=== PATIENT | female | born 1995 | race African-American/Black ===

== ENCOUNTER 2019-08-21 13:19 | Emergency (ER) | payer OTHER, SELFPAY ==
--- NOTE | ~2019-08-21 | XR_ITS ---
EXAMINATION: XR chest 2V 08/21/2019 14:36 INDICATION: Cough, fever PROCEDURE: 2 view chest COMPARISON: No prior studies for comparison. FINDINGS: The lungs are clear. The cardiomediastinal silhouette is within normal limits. There are no pleural effusions. There is no pneumothorax suspected. IMPRESSION: 1: NO ACUTE CARDIOPULMONARY DISEASE. Reviewed, dictated and finalized at location A.
[2019-08-21 13:44] VITALS: BP 119/83; PULSE 84; RESP 20; TEMP 37.2; O2SAT 100
--- NOTE | 2019-08-21 14:35 | ED.URI ---
HPI - URI/Sore Throat General Chief Complaint: Upper Respiratory Infection Stated Complaint: cough/eye running/lung hurt Source: patient Mode of arrival: ambulatory Limitations: no limitations History of Present Illness HPI Narrative: Patient is a 23-year-old female who presents complaining of sore throat, cough, chills, body aches. Patient is reported signs and symptoms x1 week, reports fever of 101 yesterday. Reports taking roay-eim-ebwjffi medications with little limited relief. Patient reports signs and symptoms starting after her brother returned from [facility] and she visited with him. MD elicited complaint: fever, cough, sore throat and rhinorrhea Related Data Allergies Allergy/AdvReac Type Severity Reaction Status Date / Time No Known Allergies Allergy Verified 08/21/19 13:40 Review of Systems Review of Systems: Narrative: CONSTITUTIONAL: Denies fever, chills, or sweats. EYES: Denies visual changes, redness, or discharge. ENT: Reports rhinorrhea, congestion, sore throat. CARDIOVASCULAR: Denies chest pain, palpitations, or edema. RESPIRATORY: Reports cough and mild dyspnea. GASTROINTESTINAL: Denies abdominal pain, nausea, vomiting, or diarrhea. GENITOURINARY: Denies dysuria or hematuria. SKIN: Denies rash or itching. MUSCULOSKELETAL: Denies back pain, joint pain, or myalgia. NEUROLOGIC: Denies headache, numbness, dizziness, or weakness. PSYCHIATRIC: Denies anxiety or depression. [facility] [place] Family History Family History Other CAD (coronary artery disease) Social History Social History (Updated 08/21/19 @ 14:43 by KARRIE Christensen) Smoking status: Never smoker Alcohol intake: never Substance use: never Gender identity (if verbalized by the patient): Female Exam Narrative: Exam Narrative: GENERAL: Well-appearing, well-nourished, and in no acute distress. HEAD: Normocephalic, atraumatic. EYES: EOMI. No redness or drainage. Conjunctiva are normal. ENT: Mucous membranes pink and moist. Nares clear. No rhinorrhea. TMs normal bilaterally. Throat erythema and edema. Uvula midline. NECK: AROM. Supple. No lymphadenopathy. CHEST: No respiratory distress. Scattered wheezing. HEART: Regular rate and rhythm. No murmur appreciated. Normal peripheral pulses. GI: Soft, nontender without rebound, or guarding. No distention. Bowel sounds normal in all quadrants. MUSCULOSKELETAL: No bony tenderness. EXTREMITIES: Normal range of motion. No edema. SKIN: Warm, dry, no rash. NEURO: No focal deficits. Alert and oriented x3. Gait steady. PSYCH: Normal affect. No signs of depression or anxiety. Course Course Emergency Course: Discussed with [facility] who reports patient does not meet criteria for testing. Discussed plan of care with patient and cautioned patient to use care with exposures because of symptoms. Patient aware and agrees to follow up with pcp. Vital Signs Vital signs: Vital Signs Temperature 37.2 C 08/21/19 13:44 Pulse Rate 84 08/21/19 13:44 Respiratory Rate 20 08/21/19 13:44 Blood Pressure 119/83 08/21/19 13:44 Pulse Oximetry 100 08/21/19 13:44 Temperature 37.2 C 08/21/19 13:44 Pulse Rate 84 08/21/19 13:44 Respiratory Rate 20 08/21/19 13:44 Blood Pressure 119/83 08/21/19 13:44 Pulse Oximetry 100 08/21/19 13:44 MDM - URI/Sore Throat MDM Narrative Medical decision making narrative: Patient chest x-ray was negative, influenza negative. Discussed with patient most likely viral illness. Patient aware of and agrees with plan of care. Patient is stable for discharge home with outpatient follow-up as discussed. Differential Diagnosis Differential diagnosis: Likely upper respiratory infection, viral infection and pharyngitis Lab Data Labs: Influenza A Screen Negative Reference Range: Negative Influenza B Screen Negative Reference Range: Negativ
== END 2019-08-21 14:55 | disposition home or self-care (01) ==
PROVIDERS: Emergency Provider Nurse Practitioner
DX: J06.9 Acute upper respiratory infection, unspecified (principal)
CPT/HCPCS: 71046; 87804; 99213; G0463

== ENCOUNTER 2019-11-16 19:58 | Emergency (ER) | payer OTHER, SELFPAY ==
--- NOTE | ~2019-11-16 | US_ITS ---
EXAMINATION: US OB <= 14 weeks fetus DATE: 11/16/2019 22:06 INDICATION: Vaginal bleeding during first trimester TECHNIQUE: Real-time pelvic ultrasound utilizing both a transvaginal and transabdominal probe was pe rformed. The interpreting radiologist was not present for the study. COMPARISON: None. FINDINGS: The uterus measures 7.7 x 5.3 x 7.2 cm. There is an intrauterine gestational sac. A yolk sac and fet al pole are identified. The crown rump length measures 2 mm, which correlates with an estimated gesta tional age of 5 weeks and 5 days. heart motion is identified measuring 89 beats per minute (bpm ) by M-mode Doppler. Relatively large hypoechoic subchorionic hematoma measuring 4.6 x 1.7 x 3.6 cm o n the anterior margin of the gestational sac. Small amount of anechoic fluid along the right side of the gestational sac likely within the endometrial canal. The right ovary measures 3.0 x 2.2 x 1.4 cm. 13 x 7 x 8 mm anechoic cyst at the periphery of the righ t ovary. There is a centrally hypoechoic corpus luteum cyst with peripheral echogenic wall also in th e right ovary. The left ovary measures 2.9 x 1.8 x 2.0 cm. Vascular flow identified in both ovaries o n color Doppler. There is no free fluid in the pelvis. IMPRESSION: 1. Single living fetus with heart rate of 89 bpm. 2. Gestational age by ultrasound of 5 weeks 5 day(s) +/- 3 day(s) with ultrasound estimated date of delivery ([facility]OR[facility]INE) of 07/13/2020. 3. Large subchorionic hematoma. Reviewed, dictated and finalized at location A. IMPRESSION: 1. Single living fetus with heart rate of 89 bpm. 2. Gestational age by ultrasound of 5 weeks 5 day(s) +/- 3 day(s) with ultraso und estimated date of delivery ([facility]OR[facility]INE) of 07/13/2020. 3. Large subchorionic hematoma.
--- NOTE | ~2019-11-16 | US_ITS ---
EXAMINATION: US OB <= 14 weeks fetus DATE: 11/16/2019 21:22 INDICATION: Vaginal bleeding during third trimester twin . TECHNIQUE: Real-time ultrasound of the pelvis was performed. The interpreting radiologist was not pre sent for the study. COMPARISON: None. FINDINGS: There are two living fetuses within separate gestational sacs by a thick intervening membra ne consistent with dichorionic diamnionic . The amniotic fluid volume is subjectively normal . Normal cervical length of 4.2 cm. Fetus A: Presentation is vertex. Placenta is anterior. cardiac activity and movement are noted. Fe brad heart rate is 127 beats per minute (bpm). Biophysical profile performed by the technologist: breathing (30 sec sustained breathing in 30 minutes): 2 out of 2 movement (3 gross body movements in 30 minutes): 2 out of 2 tone (one episode of xxsndzv-yofvuhtim-cvkvnce limb movement): 2 out of 2 Amniotic fluid pocket (2 cm): 2 out of 2 Total score: 8 out of 8 Fetus B: Presentation is breech. Placenta is posterior. cardiac activity and movement are noted. F etal heart rate is 131 bpm. Biophysical profile performed by the technologist: breathing (30 sec sustained breathing in 30 minutes): 2 out of 2 movement (3 gross body movements in 30 minutes): 2 out of 2 tone (one episode of ercrkzz-qldbxncfg-xmveztj limb movement): 2 out of 2 Amniotic fluid pocket (2 cm): 2 out of 2 Total score: 8 out of 8 IMPRESSION: 1. Dichorionic diamniotic with living twin fetuses. 2. Biophysical profile 8 out of 8 for fetus A and 8 out of 8 for fetus B Reviewed, dictated and finalized at location A.
[2019-11-16 20:00] VITALS: BP 133/88; PULSE 98; RESP 16; TEMP 35.9; O2SAT 100
--- NOTE | 2019-11-16 20:23 | ED.GENADULT ---
HPI - General Adult General Chief complaint: Vaginal Bleeding Stated complaint: vaginal bleeding, 6 weeks Time Seen by Provider: 11/16/19 20:08 Source: RN notes reviewed History of Present Illness HPI narrative: Patient presents emergency department from home for vaginal bleeding. Patient states that she had a home test approximately 2 weeks ago. Last menstrual cycle was 10/09/2019. Patient is states she is followed by Dr. Medrano. Patient states she began to have some vaginal bleeding approximately 1 hour ago denies any fevers or chills abdominal pain nausea vomiting or any other symptoms Related Data Home Medications Medication Instructions Recorded Confirmed PNV cmb#95-ferrous fumarate-FA 1 tablet PO DAILY 11/16/19 11/16/19 [] Allergies Allergy/AdvReac Type Severity Reaction Status Date / Time artichoke Allergy Severe Anaphylaxis Verified 11/16/19 20:57 Review of Systems Review of Systems: Narrative: Gen.: Denies fevers or chills ENT: Denies congestion Respiratory: Denies shortness of breath or cough CV: Denies chest pain or palpitations GI: Denies abdominal pain nausea, emesis or diarrhea HPI Musculoskeletal: Denies back pain or muscle pain Neuro: Denies numbness, tingling, weakness or focal weakness Skin: Denies rash Except as documented, all other systems reviewed and negative PMFSH Past Medical History Medical History (Updated 11/16/19 @ 22:53 by Nimesh Hardin DO) Patient denies significant medical history Social History Social History Smoking status: Never smoker Alcohol intake: never Substance use: never Gender identity (if verbalized by the patient): Female Exam Narrative: Exam Narrative: APPEARANCE: No acute distress, nontoxic, resting in bed EYES: EOMI HEENT: Normocephalic, atraumatic, OMM RESPIRATORY: No respiratory distress Clear to auscultation bilaterally with no rhonchi wheezing or rales. CARDIOVASCULAR: Regular rate and rhythm without murmurs rubs or gallops. ABDOMINAL: Soft, nontender, nondistended, no rebound or guarding : Normal external exam, small amount of dark maroon blood in vaginal canal cervix is closed MUSCULOSKELETAl: Moves all extremities. No clubbing, cyanosis or edema. NEURO: Awake and alert. Following commands, speech normal, no focal deficits SKIN:: Warm, dry. No rashes lesions or abrasions PSYCHIATRIC: Normal affect/mood, Course Course Emergency Course: Reviewed old records patient with B+ blood type. Patient also with history of chronic anemia Discussed with Dr. gallardo presentation work-up. Agrees with plan for discharge follow-up as an outpatient Discussed with patient results of workup and diagnosis. Discussed need for follow-up with primary care, proper use of medication, and reasons to return to the emergency department. Patient understands and agrees to current treatment plan Vital Signs Vital signs: Vital Signs Temperature 96.7 F L 11/16/19 20:00 Pulse Rate 98 11/16/19 20:00 Respiratory Rate 16 11/16/19 20:00 Blood Pressure 133/88 11/16/19 20:00 Pulse Oximetry 100 11/16/19 20:00 Temperature 96.7 F L 11/16/19 20:00 Pulse Rate 98 11/16/19 20:00 Respiratory Rate 16 11/16/19 20:00 Blood Pressure 133/88 11/16/19 20:00 Pulse Oximetry 100 11/16/19 20:00 Medical Decision Making Vital Signs Vital Signs: Vital Signs Temperature 96.7 F L 11/16/19 20:00 Pulse Rate 98 11/16/19 20:00 Respiratory Rate 16 11/16/19 20:00 Blood Pressure 133/88 11/16/19 20:00 Pulse Oximetry 100 11/16/19 20:00 Temperature 96.7 F L 11/16/19 20:00 Pulse Rate 98 11/16/19 20:00 Respiratory Rate 16 11/16/19 20:00 Blood Pressure 133/88 11/16/19 20:00 Pulse Oximetry 100 11/16/19 20:00 Lab Data Result diagrams: 11/16/19 20:38 11/16/19 20:39 Labs: Lab Results 11/16/19 11/16/19
[2019-11-16 20:56] LABS: Alanine Aminotransferase 13 U/L (4-35); Albumin Level 4.6 g/dL (3.5-5.1); Alkaline Phosphatase 79 U/L (38-126); Aspartate Amino Transferase 25 U/L (14-36); Bilirubin,Total 0.4 mg/dL (0.2-1.3); Blood Urea Nitrogen 8 mg/dL (7-17); Calcium 9.2 mg/dL (8.4-10.2); Carbon Dioxide 22 mmol/L (22-30); Chloride 104 mmol/L (98-107); Estimated Glomerular Filt Rate > 60; Glucose 91 mg/dL (65-105); Potassium 3.8 mmol/L (3.4-5.0); Sodium 135 mmol/L (137-145)
[2019-11-16 21:17] LABS: Basophils Absolute Auto 0.1 K/mm3 (0.0-0.1); Basophils Percent Auto 0.9 % (0.2-1.2); Eosinophils Absolute Auto 0.1 K/mm3 (0-0.3); Eosinophils Percent Auto 1.6 % (0-4.4); Hematocrit 30.1 % (37.0-47.0); Hemoglobin 8.7 g/dL (12.0-15.0); Immature Granulocyte Absolute 0.02 K/mm3 (0.00-0.031); Immature Granulocyte Percent A 0.3 % (0-0.5); Lymphocytes Absolute Auto 1.56 K/mm3 (0.9-3.2); Lymphocytes Percent Auto 20.7 % (18.3-44.2); Mean Corpuscular HGB Conc 28.9 g/dl (32-36); Mean Corpuscular Volume 72.5 fl (80-100); Mean Platelet Volume 11.1 fl (7.4-10.4); Monocytes Absolute Auto 0.6 K/mm3 (0.1-0.6); Monocytes Percent Auto 8.3 % (2.6-8.5); Neutrophils Absolute Auto 5.2 K/mm3 (1.3-6.7); Neutrophils Percent Auto 68.2 % (45.5-73.1); Platelet Count Result 281 k/mm3 (150-375); Red Blood Count 4.15 M/mm3 (4.2-5.4); Red Cell Distribution Width 18.8 % (11.5-14.5); White Blood Count 7.6 K/mm3 (4.5-10.0)
[2019-11-16 21:27] LABS: Hypochromasia 1+ (NORMAL); Ovalocytes 1+ (NORMAL); Platelet Estimate Adequate (Adequate)
[2019-11-16 23:00] VITALS: BP 129/87; PULSE 86; RESP 18; O2SAT 100
== END 2019-11-16 23:00 | disposition home or self-care (01) ==
PROVIDERS: Emergency Provider Emergency Medicine
DX: O20.0 Threatened abortion (principal); O30.001 Twin pregnancy, unspecified number of placenta and unspecified number of amniotic sacs, first trimester; Z3A.01 Less than 8 weeks gestation of pregnancy
CPT/HCPCS: 36415; 76801; 80053; 81025; 84702; 85025; 99284

== ENCOUNTER 2019-12-18 16:26 | Emergency (ER) | payer OTHER, SELFPAY ==
--- NOTE | 2019-12-18 16:49 | OBADM ---
This patient, Suni Mcdaniel, was taken by WC to the OB room 113. Pt was in tears stating she was miscarrying her 10wk . BP taken, bleeding assessed as half dollar size on her pad. Dr. Marshall called at 1615 and ordered the patient to be transferred to the ED. RN transported patient to the ED via WC
[2019-12-18 16:53] VITALS: RESP 20
[2019-12-18 17:18] VITALS: BP 130/98; PULSE 109; RESP 16; TEMP 36.8; O2SAT 100
[2019-12-18 17:33] LABS: Basophils Percent Auto 0.3 % (0.2-1.2); Eosinophils Absolute Auto 0.1 K/mm3 (0-0.3); Eosinophils Percent Auto 0.9 % (0-4.4); Hematocrit 31.2 % (37.0-47.0); Hemoglobin 9.4 g/dL (12.0-15.0); Immature Granulocyte Absolute 0.05 K/mm3 (0.00-0.031); Immature Granulocyte Percent A 0.5 % (0-0.5); Lymphocytes Absolute Auto 1.26 K/mm3 (0.9-3.2); Lymphocytes Percent Auto 12.3 % (18.3-44.2); Mean Corpuscular HGB Conc 30.1 g/dl (32-36); Mean Corpuscular Volume 73.1 fl (80-100); Mean Platelet Volume 11.1 fl (7.4-10.4); Monocytes Absolute Auto 0.7 K/mm3 (0.1-0.6); Monocytes Percent Auto 6.6 % (2.6-8.5); Neutrophils Absolute Auto 8.1 K/mm3 (1.3-6.7); Neutrophils Percent Auto 79.4 % (45.5-73.1); Platelet Count Result 284 k/mm3 (150-375); Red Blood Count 4.27 M/mm3 (4.2-5.4); Red Cell Distribution Width 18.9 % (11.5-14.5); White Blood Count 10.2 K/mm3 (4.5-10.0)
--- NOTE | 2019-12-18 18:49 | ED.PREGNANCY ---
HPI - General Chief complaint: Vaginal Bleeding Stated complaint: vag bleed/ 10 weeks preg Time Seen by Provider: 12/18/19 18:32 History of Present Illness HPI Narrative: Patient presents with her from the OBs office for vaginal bleeding. She is 10 weeks . She has had vaginal bleeding for 2 days. She has low back pain from 5 out of 10. She had an ultrasound in the OBs office that showed a subchorionic hemorrhage. Her lab work is back and her H&H is fine. I will do her female exam and call the OB to confirm the results of the ultrasound. She had some vomiting yesterday but not today. She is G3, P2 Ab1 Complaint: abdominal pain and vaginal bleeding Onset (ago): day(s) Pain Consistency: constant Location: pelvis Severity: moderate Related Data Home Medications Medication Instructions Recorded Confirmed PNV cmb#95-ferrous fumarate-FA 1 tablet PO DAILY 11/16/19 11/16/19 [] Allergies Allergy/AdvReac Type Severity Reaction Status Date / Time artichoke Allergy Severe Anaphylaxis Verified 11/16/19 20:57 Review of Systems Review of Systems: Narrative: CONSTITUTIONAL: Denies fever, chills, or sweats. EYES: Denies visual changes, redness, or discharge. ENT: Denies rhinorrhea, congestion, sore throat, or otalgia. CARDIOVASCULAR: Denies chest pain, palpitations, or edema. RESPIRATORY: Denies cough or dyspnea. GASTROINTESTINAL: Denies abdominal pain, nausea, vomiting, or diarrhea. GENITOURINARY: Denies dysuria or hematuria. SKIN: Denies rash or itching. MUSCULOSKELETAL: She has back pain, but not joint pain, or myalgia. NEUROLOGIC: Denies headache, numbness, or weakness. PSYCHIATRIC: Denies anxiety or depression. [facility] Past Medical History Medical History (Updated 12/18/19 @ 18:53 by Aury Aguillon MD) Miscarriage Twin Vaginal bleeding during Social History Social History Smoking status: Never smoker Alcohol intake: never Substance use: never Gender identity (if verbalized by the patient): Female Exam Narrative: Exam Narrative: GENERAL: Very thin girl very upset . hEAD: Normocephalic, atraumatic. EYES: PERRLA and EOMI. ENT: Nares clear, no rhinorrhea or epistaxis. Mucous membranes moist. NECK: Supple. CHEST: Clear to auscultation. No respiratory distress. HEART: Regular rate and rhythm. No murmur heard. Normal peripheral pulses. ABDOMEN: Soft, nontender, nondistended, normal active bowel sounds. EXTREMITIES: Normal range of motion. No edema. SKIN: Warm, dry, no rash. NEURO: No focal deficits. Alert and oriented x3. PSYCH: Sad and worried. : No external vaginal bleeding, vaginal vault full of blood, no active bleeding after vault is empty, office is closed, no tenderness. Course Consultations Consultation #1: Called [facility] and spoke with Dr. Marshall. He confirms that the ultrasound was done this morning and does not need to be repeated. He does not think is necessary to have a 48-hour hCG. He said that we can follow clinically. Date: 12/18/19 Time: 18:55 Vital Signs Vital signs: Vital Signs Respiratory Rate 20 12/18/19 16:53 Temperature 98.3 F 12/18/19 17:18 Pulse Rate 109 H 12/18/19 17:18 Respiratory Rate 16 12/18/19 17:18 Blood Pressure 130/98 H 12/18/19 17:18 Pulse Oximetry 100 12/18/19 17:18 MDM - OB/Uterine Contractions Medical Records Attestation: I reviewed the patient's medical records. Lab Data Attestation: I reviewed the patient's lab results. Result diagrams: 12/18/19 17:24 Labs: Lab Results 12/18/19 12/18/19 12/18/19 Range/Units 17:24 17:24 17:24 WBC 10.2 H (4.5-10.0) K/mm3 RBC 4.27 (4.2-5.4) M/mm3 Hgb 9.4 L (12.0-15.0) g/dL Hct 31.2 L (37.0-47.0) % MCV 73.1 L (80-100) fl MCH 22.0 L (26-34) pg MCHC 30.1 L (32-36) g/dl RDW 18.9 H (11.5-14.5) % Plt Count 284 (150-375) k/mm3
== END 2019-12-18 18:52 | disposition home or self-care (01) ==
PROVIDERS: Emergency Provider Emergency Medicine
DX: O46.91 Antepartum hemorrhage, unspecified, first trimester (principal); Z3A.10 10 weeks gestation of pregnancy
CPT/HCPCS: 36415; 84702; 85025; 85461; 99284

== ENCOUNTER 2020-01-07 13:01 | Emergency (ER) | payer OTHER, SELFPAY ==
--- NOTE | ~2020-01-07 | XR_ITS ---
XR chest 1V portable DATE: 01/07/2020 14:11 INDICATION: Vomiting. 13 week gravid patient. TECHNIQUE: Upright portable AP chest COMPARISON: 08/21/2019 2 view chest FINDINGS: Bilateral hyperinflation. No pulmonary infiltrate or consolidation, pleural effusion or pul monary vascular congestion or pneumothorax. Normal heart size. No hilar or mediastinal enlargement. IMPRESSION: Bilateral hyperinflation; otherwise no active cardiopulmonary disease Reviewed, dictated and finalized at location A. IMPRESSION: Bilateral hyperinflation; otherwise no active cardiopulmonary disea se
[2020-01-07 13:03] VITALS: BP 123/94; PULSE 120; RESP 18; TEMP 36.4; O2SAT 100
--- NOTE | 2020-01-07 13:54 | ECG_ITS ---
Measurements Intervals [place] Rate: 102 P: 59 LA: 179 QRS: 58 QRSD: 78 T: -34 QT: 322 QTc: 421 Interpretive Statements SINUS TACHYCARDIA T WAVE ABNORMALITY IN INFERIOR LEADS- CONSIDER ISCHEMIA ABNORMAL ECG Electronically Signed On 01-07-2020 14:52:27 CDT by Chester Sanabria D.O.
[2020-01-07 14:14] LABS: Basophils Percent Auto 0.1 % (0.2-1.2); Hematocrit 31.8 % (37.0-47.0); Hemoglobin 9.8 g/dL (12.0-15.0); Immature Granulocyte Absolute 0.07 K/mm3 (0.00-0.031); Immature Granulocyte Percent A 0.5 % (0-0.5); Lymphocytes Absolute Auto 0.76 K/mm3 (0.9-3.2); Lymphocytes Percent Auto 5.3 % (18.3-44.2); Mean Corpuscular HGB Conc 30.8 g/dl (32-36); Mean Corpuscular Hemoglobin 22.4 pg (26-34); Mean Corpuscular Volume 72.6 fl (80-100); Mean Platelet Volume 11.1 fl (7.4-10.4); Monocytes Absolute Auto 0.3 K/mm3 (0.1-0.6); Monocytes Percent Auto 2.4 % (2.6-8.5); Neutrophils Percent Auto 91.7 % (45.5-73.1); Platelet Count Result 372 k/mm3 (150-375); Red Blood Count 4.38 M/mm3 (4.2-5.4); Red Cell Distribution Width 17.8 % (11.5-14.5); White Blood Count 14.2 K/mm3 (4.5-10.0)
[2020-01-07 14:27] LABS: Alanine Aminotransferase 14 U/L (4-35); Albumin Level 4.6 g/dL (3.5-5.1); Alkaline Phosphatase 62 U/L (38-126); Anion Gap 16.2 mmol/L (7-16); Aspartate Amino Transferase 28 U/L (14-36); Bilirubin,Total 1.2 mg/dL (0.2-1.3); Blood Urea Nitrogen 8 mg/dL (7-17); Calcium 9.7 mg/dL (8.4-10.2); Carbon Dioxide 19 mmol/L (22-30); Chloride 100 mmol/L (98-107); Estimated CRCL calculation 161 ml/min; Estimated Glomerular Filt Rate > 60; Glucose 125 mg/dL (65-105); Lipase 96 U/L (23-300); Potassium 3.2 mmol/L (3.4-5.0); Sodium 132 mmol/L (137-145)
[2020-01-07 15:03] LABS: Troponin I < 0.012 ng/mL (0.000-0.034)
[2020-01-07 15:05] VITALS: BP 136/90; PULSE 100; RESP 14; O2SAT 98
[2020-01-07] MEDS: METOCLOPRAMIDE HCL INJ 10 MG/2 ML VIAL IV PUSH (15:19)
[2020-01-07] MEDS: DEXTROSE 5%/LACTATED RINGERS 1,000 ML 1000 ML IV CONT (15:19)
--- NOTE | 2020-01-07 15:46 | ED.NAVMDI ---
HPI - Nausea/Vomiting/Diarrhea General Chief complaint: Nausea/Vomiting/Diarrhea Stated complaint: Vomiting, 13 Weeks Preg Time Seen by Provider: 01/07/20 13:13 Source: patient Mode of arrival: ambulatory Limitations: no limitations History of Present Illness HPI Narrative: This patient is a 24 year old female approximately 13 weeks GA who presents for evaluation of nausea and vomiting. She report has been having nausea, vomiting and diarrhea for 24 hours. She is unable to keep any fluids down. She reports lightheadedness and weakness due to dehydration. She is taking an antiemetic at home without relief. She is unable to state name of medication. She denies sick contacts. She denies fever, chills, cough or abdominal pain. She denies vaginal bleeding. Her OB is Dr. Medrano. Related Data Home Medications Medication Instructions Recorded Confirmed PNV cmb#95-ferrous fumarate-FA 1 tablet PO DAILY 11/16/19 11/16/19 [] Allergies Allergy/AdvReac Type Severity Reaction Status Date / Time artichoke Allergy Severe Anaphylaxis Verified 01/07/20 13:07 Review of Systems Review of Systems: All systems reviewed & are unremarkable except as noted in HPI and below Constitutional: Constitutional: Denies chills and Denies fever(s) Cardiovascular: Cardiovascular: Reports chest pain Respiratory: Respiratory: Denies cough, Denies dyspnea and Denies wheezing Gastrointestinal: Gastrointestinal: Denies abdominal pain, Reports diarrhea, Reports nausea and Reports vomiting Genitourinary: Genitourinary: Denies abnormal vaginal bleeding and Denies vaginal discharge Musculoskeletal: Musculoskeletal: Denies back pain PMFSH Past Medical History Medical History (Updated 01/07/20 @ 17:49 by Libra Marcus MD) Miscarriage Twin Vaginal bleeding during Social History Social History Smoking status: Never smoker Alcohol intake: never Substance use: never Gender identity (if verbalized by the patient): Female Exam Narrative: Exam Narrative: GENERAL: well-nourished, and in no acute distress. HEAD: Normocephalic, atraumatic EYES: PERRLA and EOMI, conjunctiva clear without discharge THROAT:Mucous membranes moist, Oropharynx normal without erythema, exudate, peritonsillar swelling or fluctuance NECK: Supple, without lymphadenopathy or mass RESPIRATORY: No respiratory distress, Airway patent, Respirations non-labored, Clear to auscultation without rales, rhonchi or wheeze HEART: Regular rate and rhythm. No murmur heard. Normal peripheral pulses. ABDOMEN: Soft, nontender, nondistended, normal active bowel sounds. No masses. No rebound or guarding, No organomegaly. EXTREMITIES: No edema, normal strength with full range of motion. SKIN: Warm, dry, normal color without rash NEURO: Alert and oriented x3. CN 2-12 grossly intact. No focal deficits. PSYCH: Normal mood and affect. Course Reevaluation(s) Reevaluation #1: Patient reports she is still nauseated. Date: 01/07/20 Time: 15:55 Reevaluation #2: Patient states she feels much better. She is able to tolerate PO now Date: 01/07/20 Time: 17:46 Consultations Consultation #1: I Discussed case with Dr. corrales. She recommends patient be given pepcid. Patient should also be taking B6 three times a day and unasym 1/2 tab at dinner. Date: 01/07/20 Time: 17:17 Vital Signs Vital signs: Vital Signs Temperature 97.5 F L 01/07/20 13:03 Pulse Rate 120 H 01/07/20 13:03 Respiratory Rate 18 01/07/20 13:03 Blood Pressure 123/94 H 01/07/20 13:03 Pulse Oximetry 100 01/07/20 13:03 Temperature 97.5 F L 01/07/20 13:03 Pulse Rate 80 01/07/20 18:18 Respiratory Rate 16 01/07/20 18:18 Blood Pressure 132/88 01/07/20 18:18 Pulse Oximetry 98 01/07/20 18:18 MDM - Nausea/Vomiting/Diarrhea Lab Data Attestation: I reviewed the patient's lab results. Result diagra
[2020-01-07] MEDS: ONDANSETRON INJ 4 MG/2 ML VIAL IV PUSH (16:35)
[2020-01-07] MEDS: SODIUM CHLORIDE 0.9% IV 1,000 ML 999 ML IV CONT (16:35)
[2020-01-07 17:00] LABS: Add Urine Microscopic? YES; Appearance Urine Clear (Clear); Bacteria Urine Trace /hpf; Bilirubin Urine Negative (Negative); Blood Urine Negative (Negative); Color Urine Yellow (Yellow); Glucose Urine UA 1+ mg/dL (Negative); Ketones Urine 2+ mg/dL (Negative); Leukocyte Esterase Ur Negative LEU/UL (Negative); Mucus Urine Few /lpf; Nitrate Urine Negative (Negative); Protein Urine 2+ mg/dL (Negative); Squamous Epithelial Cell Urine Moderate /hpf (Few); Urobilinogen Urine Negative mg/dL (<2.0); WBC Urine 0-3 /hpf
[2020-01-07 17:06] LABS: Specific Grav Ur 1.031 (1.001-1.035)
[2020-01-07] MEDS: FAMOTIDINE 20 MG/2 ML VIAL IV PUSH (18:06)
[2020-01-07 18:18] VITALS: BP 132/88; PULSE 80; RESP 16; O2SAT 98
== END 2020-01-07 18:18 | disposition home or self-care (01) ==
PROVIDERS: Emergency Provider General Practice
DX: O21.9 Vomiting of pregnancy, unspecified (principal); O99.281 Endocrine, nutritional and metabolic diseases complicating pregnancy, first trimester; E86.0 Dehydration; Z3A.13 13 weeks gestation of pregnancy; O99.89 Other specified diseases and conditions complicating pregnancy, childbirth and the puerperium; R00.0 Tachycardia, unspecified; R94.31 Abnormal electrocardiogram [ECG] [EKG]
CPT/HCPCS: 36415; 71045; 80053; 81001; 83690; 84484; 85025; 93005; 96361; 96374; 96375; 99284; J0131; J2405; J2765; J7030; J7121

== ENCOUNTER 2020-01-19 13:26 | Outpatient (RCR) | payer OTHER, SELFPAY ==
[2020-01-19 14:11] LABS: Hemoglobin 9.8 g/dL (12.0-15.0); Mean Corpuscular HGB Conc 30.6 g/dl (32-36); Mean Corpuscular Hemoglobin 22.7 pg (26-34); Mean Corpuscular Volume 74.1 fl (80-100); Mean Platelet Volume 10.4 fl (7.4-10.4); Platelet Count Result 400 k/mm3 (150-375); Red Blood Count 4.32 M/mm3 (4.2-5.4); Red Cell Distribution Width 17.9 % (11.5-14.5); White Blood Count 10.3 K/mm3 (4.5-10.0)
[2020-01-19 15:07] LABS: HIV 1/2 Ab P24 Ag Result Negative (Negative)
[2020-01-19 15:11] LABS: Hepatitis B Surface Antigen Negative (Negative); Rubella IgG Antibody 80.3 IU/ML
[2020-01-22 10:03] LABS: Rapid Plasma Reagin Non-Reactive (NonReactive)
[2020-01-26 13:38] LABS: CMV IgG Antibody <0.60 U/mL (<0.60)
== END 2020-04-18 23:59 | disposition home or self-care (01) ==
LOC: ANHLAB 13:26
PROVIDERS: Visit Provider Obstetrics & Gynecology
DX: Z11.4 Encounter for screening for human immunodeficiency virus [HIV] (principal)
CPT/HCPCS: 36415; 84702; 85027; 85461; 86592; 86644; 86703; 86747; 86762; 86787; 87086; 87088; 87340; G0432

== ENCOUNTER 2020-03-01 03:48 | Observation (INO) | payer OTHER, SELFPAY ==
[2020-03-01] VITALS (12 sets, daily range): BP systolic 116–124; BP diastolic 66–82; PULSE 99–116; O2SAT 100
--- NOTE | ~2020-03-01 | US_ITS ---
EXAMINATION: US OB limited EXAM DATE: 03/01/2020 07:41 INDICATION: Vaginal cramping, bleeding. . 2nd trimester. TECHNIQUE: Pelvic obstetrical transabdominal sonogram was performed by a technologist. There are mu ltiple grayscale and Doppler images available for interpretation. Comparison is made to prior examina tion from 11/16/2019. FINDINGS: There is a single fetus identified in breech presentation with a heart rate of 155 beats pe r minute. The placenta is located in the fundal position. There are 2 hypoechoic regions along the anterior and inferior margin of the placenta, one is slightl y more echogenic than the other. Region which is along the placental margin measures 4.5 x 1.8 x 5.6 cm. The other regions slightly more hyperechoic measuring 4.7 x 3.6 x 3.8 cm. These could be retrop lacental marginal hematomas. Please note that on prior study there was a subchorionic hematoma identi fied measuring 4.6 x 1.7 x 3.6 cm in same location. IMPRESSION: Live intrauterine gestation with 2 contiguous regions consistent with sizable retroplace ntal marginal hematomas, probably different ages given slightly different echogenicities and there wa s a similar sized subchorionic hematoma identified on an ultrasound in November in the same location. Reviewed, dictated and finalized at location A. IMPRESSION: Live intrauterine gestation with 2 contiguous regions consistent w ith sizable retroplacental marginal hematomas, probably different ages given sl ightly different echogenicities and there was a similar sized subchorionic juan luther identified on an ultrasound in November in the same location.
[2020-03-01] MEDS: DEXTROSE 5%/LACTATED RINGERS 1,000 ML 100 ML IV CONT (05:50)
[2020-03-01] MEDS: TERBUTALINE SULFATE 1 MG/ML VIAL 0.25 MG SUB-Q ×2 (05:54→09:03)
--- NOTE | 2020-03-01 11:41 | PC.NURSE ---
TOCO monitor show rare contraction since 0600 until discharge to home with irritability. Pt has been resting and sleeping on/off. When awake pt complains of cramping. No vaginal bleeding seen. 2nd dose of terbutaline 0.25 given SQ at 0903. Home to self care and follow up with TANIYA and Dr. Medrano's office at 1000.
--- NOTE | 2020-03-14 09:28 | PM.OBTRLD ---
OB - Triage/Final Diagnosis Visit Information Comments/Additional reasons for admission: vaginal bleeding
== END 2020-03-01 10:00 | disposition home or self-care (01) ==
PROVIDERS: Admitting Provider Obstetrics & Gynecology; Visit Provider Obstetrics & Gynecology
DX: O46.92 Antepartum hemorrhage, unspecified, second trimester (principal); Z3A.00 Weeks of gestation of pregnancy not specified
CPT/HCPCS: 76815; 96372; G0378; G0379; J3105; J7121

== ENCOUNTER 2020-03-07 15:13 | Observation (INO) | payer OTHER, SELFPAY ==
--- NOTE | ~2020-03-07 | US_ITS ---
EXAMINATION: US OB limited DATE: 03/07/2020 16:10 INDICATION: Vaginal bleeding during second trimester TECHNIQUE: Real-time ultrasound of the pelvis was performed. The interpreting radiologist was not pre sent for the study. COMPARISON: 03/01/2020 FINDINGS: There is a single living fetus in breech presentation. The placenta is fundal. There is an evolving hypoechoic area along the margin of the placenta which measures up to 6.7 cm, previously 5.8 cm. cardiac activity and movement are noted. heart rate is 135 beats per minute (b pm). The amniotic fluid index is 12.0 cm which is normal. IMPRESSION: 1. Single living fetus in breech presentation. 2. Apparent evolving marginal placental hematoma with slight increase in size. Reviewed, dictated and finalized at location A.
[2020-03-07 15:25] VITALS: BP 108/74; PULSE 96
[2020-03-07 15:30] VITALS: BP 107/80; PULSE 101
[2020-03-07 15:45] VITALS: BP 110/82; PULSE 98
[2020-03-07] MEDS: TERBUTALINE SULFATE 1 MG/ML VIAL (16:51)
[2020-03-07] MEDS: TERBUTALINE SULFATE 1 MG/ML VIAL 0.25 MG SUB-Q (17:23)
[2020-03-07 17:58] VITALS: BMI 58.1
--- NOTE | 2020-03-13 07:26 | PM.OBTRLD ---
OB - Triage/Final Diagnosis Visit Information Comments/Additional reasons for admission: vaginal bleeding
--- NOTE | 2020-03-13 07:28 | PM.OBTRLD ---
OB - Triage/Final Diagnosis Visit Information Comments/Additional reasons for admission: vaginal bleeding
== END 2020-03-07 18:03 | disposition home or self-care (01) ==
PROVIDERS: Admitting Provider Obstetrics & Gynecology; Visit Provider Obstetrics & Gynecology
DX: O46.90 Antepartum hemorrhage, unspecified, unspecified trimester (principal); Z3A.00 Weeks of gestation of pregnancy not specified
CPT/HCPCS: 76815; 96372; G0378; G0379; J3105

== ENCOUNTER 2020-08-09 23:38 | Observation (INO) | payer OTHER, SELFPAY ==
[2020-08-09 23:39] VITALS: BP 131/94; PULSE 108; RESP 21; TEMP 36.6; O2SAT 99
--- NOTE | 2020-08-09 23:47 | ECG_ITS ---
Measurements Intervals [place] Rate: 99 P: 45 DC: 191 QRS: 48 QRSD: 77 T: -24 QT: 345 QTc: 443 Interpretive Statements SINUS RHYTHM NONSPECIFIC T-WAVE ABNORMALITY- INFERIOR LEADS BORDERLINE ECG Electronically Signed On 08-10-2020 11:38:56 [facility] by Chester Sanabria D.O.
--- NOTE | 2020-08-09 23:55 | ED.OVERDOSE ---
HPI - Overdose General Chief Complaint: Overdose Stated Complaint: od Time Seen by Provider: 08/09/20 23:46 Source: RN notes reviewed History of Present Illness HPI Narrative: Patient presents to emergency department from home via EMS for intentional overdose. Patient states she has been dealing with increased depression she had a child approximately 4 months ago that spent 100 days in the NICU and just returned home approximately 3 weeks ago she states she has been struggling with depression throughout her recovery patient states that last night she attempted to harm herself by taking an unknown amount of pain medication but then threw them up shortly after this evening the patient took an unknown amount of sertraline states she vomited shortly after that as well and the called EMS patient does report suicidal ideation but denies any homicidal ideation she denies any recent illness denies any fevers or chills chest pain shortness of breath or any other symptoms. When asked what pain medication she took last night the patient states the bottle only said pain pills Related Data Home Medications Medication Instructions Recorded Confirmed PNV cmb#95-ferrous fumarate-FA 1 tablet PO DAILY 11/16/19 11/16/19 [] Allergies Allergy/AdvReac Type Severity Reaction Status Date / Time artichoke Allergy Severe Anaphylaxis Verified 01/07/20 13:07 Review of Systems Review of Systems: Narrative: Gen.: Denies fevers or chills ENT: Denies congestion Respiratory: Denies shortness of breath or cough CV: Denies chest pain or palpitations GI: Denies abdominal pain nausea, emesis or diarrhea Musculoskeletal: Denies back pain or muscle pain Neuro: Denies numbness, tingling, weakness or focal weakness Skin: Denies rash Psych: See HPI Except as documented, all other systems reviewed and negative [facility] Past Medical History Medical History Miscarriage Twin Vaginal bleeding during Family History Family History Other CAD (coronary artery disease) Social History Social History Smoking status: Never smoker Alcohol intake: never Substance use: never Gender identity (if verbalized by the patient): Female Exam Narrative: Exam Narrative: APPEARANCE: No acute distress, nontoxic, resting in bed EYES: PERRL HEENT: Normocephalic, atraumatic, OMM RESPIRATORY: No respiratory distress Clear to auscultation bilaterally with no rhonchi wheezing or rales. CARDIOVASCULAR: Regular rate and rhythm without murmurs rubs or gallops. ABDOMINAL: Soft, nontender, nondistended, no rebound or guarding MUSCULOSKELETAl: Moves all extremities. No clubbing, cyanosis or edema. NEURO: Awake and alert. Following commands, speech normal, no focal deficits SKIN:: Warm, dry. No rashes lesions or abrasions PSYCHIATRIC: Positive suicidal ideation, denies homicidal ideation Course Course Emergency Course: Patient control notified by nursing staff Discussed with Dr. Sommers presentation and work-up agrees with admission in the ICU Discussed with Dr. Acosta presentation work-up agrees with admission at this time Discussed with patient and family results of workup and diagnosis. Discussed need for admission. Patient and family understand and agree to current treatment plan Vital Signs Vital signs: Vital Signs Temperature 98 F 08/09/20 23:39 Pulse Rate 108 H 08/09/20 23:39 Respiratory Rate 21 H 08/09/20 23:39 Blood Pressure 131/94 H 08/09/20 23:39 Pulse Oximetry 99 08/09/20 23:39 Temperature 98 F 08/09/20 23:39 Pulse Rate 100 08/10/20 02:06 Respiratory Rate 12 08/10/20 02:06 Blood Pressure 122/92 H 08/10/20 02:06 Pulse Oximetry 99 08/10/20 02:06 MDM - Overdose Lab Data Result diagrams: 08/10/20 00:42
[2020-08-10] VITALS (10 sets, daily range): BP systolic 107–149; BP diastolic 68–92; PULSE 86–123; RESP 12–20; TEMP 36.8–37.2; O2SAT 98–100; BMI 20.9
--- NOTE | 2020-08-10 | PC.NURSE ---
spoke with amber car from [place] poison control. watch for sinus tach, prolong qt, wide qrs, coma.
[2020-08-10 00:50] LABS: Basophils Percent Auto 0.3 % (0.2-1.2); Hematocrit 47.7 % (37.0-47.0); Hemoglobin 15.5 g/dL (12.0-15.0); Immature Granulocyte Absolute 0.09 K/mm3 (0.00-0.031); Immature Granulocyte Percent A 0.6 % (0-0.5); Lymphocytes Percent Auto 3.8 % (18.3-44.2); Mean Corpuscular HGB Conc 32.5 g/dl (32-36); Mean Corpuscular Hemoglobin 30.3 pg (26-34); Mean Corpuscular Volume 93.3 fl (80-100); Monocytes Absolute Auto 0.3 K/mm3 (0.1-0.6); Monocytes Percent Auto 1.9 % (2.6-8.5); Neutrophils Absolute Auto 14.6 K/mm3 (1.3-6.7); Neutrophils Percent Auto 93.4 % (45.5-73.1); Platelet Count Result 262 k/mm3 (150-375); Red Blood Count 5.11 M/mm3 (4.2-5.4); Red Cell Distribution Width 12.9 % (11.5-14.5); White Blood Count 15.6 K/mm3 (4.5-10.0)
[2020-08-10 01:00] LABS: Acetaminophen < 10 ug/mL (10-30); Ethanol < 10 mg/dL (<10); Salicylate < 1.0 mg/dL (2-20)
[2020-08-10 01:17] LABS: Alanine Aminotransferase 17 U/L (4-35); Albumin Level 5.1 g/dL (3.5-5.1); Alkaline Phosphatase 105 U/L (38-126); Anion Gap 12 mmol/L (8-16); Aspartate Amino Transferase 37 U/L (14-36); Bilirubin,Total 1.2 mg/dL (0.2-1.3); Blood Urea Nitrogen 12 mg/dL (7-17); Calcium 9.7 mg/dL (8.4-10.2); Carbon Dioxide 24 mmol/L (22-30); Chloride 108 mmol/L (98-107); Estimated CRCL calculation 120 ml/min; Estimated Glomerular Filt Rate > 60; Glucose 120 mg/dL (65-105); Sodium 144 mmol/L (137-145)
[2020-08-10 01:26] LABS: Add Urine Microscopic? YES; Appearance Urine Clear (Clear); Bacteria Urine Trace /hpf; Bilirubin Urine Negative (Negative); Blood Urine Negative (Negative); Color Urine Yellow (Yellow); Glucose Urine UA Negative (Negative); Ketones Urine Trace mg/dL (Negative); Leukocyte Esterase Ur Negative LEU/UL (Negative); Mucus Urine Few /lpf; Nitrate Urine Negative (Negative); Protein Urine 2+ mg/dL (Negative); RBC Urine 0-2 /hpf (0-2); Specific Grav Ur 1.027 (1.001-1.035); Squamous Epithelial Cell Urine Moderate /hpf (Few); Urobilinogen Urine Negative mg/dL (<2.0)
[2020-08-10 01:45] LABS: Amphetamine Screen Urine Negative (Negative); Barbiturate Screen Urine Negative (Negative); Benzodiazepines Screen Urine Positive (Negative); Cannabinoid Screen Urine Negative (Negative); Cocaine Screen Urine Negative (Negative); Methadone Screen Urine Negative (Negative); Opiate Screen Urine Negative (Negative); Phencyclidine Screen Urine Negative (Negative)
[2020-08-10] MEDS: SODIUM CHLORIDE 0.9% IV 1,000 ML 999 ML IV CONT ×2 (02:02→08:47)
[2020-08-10 02:03] LABS: Thyroid Stimulating Hormone 0.312 uIU/mL (0.465-4.680)
--- NOTE | 2020-08-10 02:09 | PM.IMHP ---
H&P: HPI History of Present Illness Date/Time: 08/10/20 02:09 Chief Complaint: Intentional overdose Narrative: This is a 24 year old female who [facility] to [facility] overdose. The patient has been depressed lately secondary to depression and having her child in the NICU for 100 days. Apparently she took an unknown amount of pain medication yesterday and vomited up those pills afterwards. Tonight she intentionally overdosed on a full bottle of Sertraline. She vomited well over an hour later when she attempted to eat some food. Since then she has been very nauseated and has had diffuse abdominal discomfort. She denies any other symptoms. She denies any previous suicidal attempts. She also denies any homocidal ideation. Operational Communication Chief, Dr. Sommers has been consulted by ER provider. No other complaints. Review of Systems Review of Systems: All systems reviewed & are unremarkable except as noted in HPI and below PMFSH Past Medical History Medical History Miscarriage Twin Vaginal bleeding during Surgical History Surgical History Previous section Family History Family History Father Myocardial infarct Other CAD (coronary artery disease) Social History Social History Smoking status: Never smoker Alcohol intake: never Substance use: never Gender identity (if verbalized by the patient): Female Spiritual care concerns: No Meds Home Medications and Allergies Allergies Allergy/AdvReac Type Severity Reaction Status Date / Time artichoke Allergy Severe Anaphylaxis Verified 01/07/20 13:07 Vital Signs Vital Signs - 24 hr 08/09/20 23:39 08/10/20 01:56 08/10/20 02:06 Temperature 36.6 C Pulse Rate 108 H 95 100 Respiratory Rate 21 H 18 12 Blood Pressure 131/94 H 149/92 H 122/92 H Pulse Oximetry 99 98 99 Exam Const: General: cooperative, alert and awake Nutritional Appearance: well nourished Orientation/consciousness: patient oriented x3 HENMT: Head: normal to inspection General nose exam: Normal external nose present Face and sinus: normal facial exam Mouth: Yes Normal oral and palatal mucosa present and Yes oropharynx normal Eyes: Pupils: Equal, round and reactive pupils present EOM: EOMs intact bilaterally Neck: Neck: supple and no JVD Thyroid: thyroid normal Lymphatic: lymphadenopathy not noted Resp: Effort & Inspection: normal respiratory effort Auscultation: clear to auscultation bilaterally Cardio: Rate: regular rate Rhythm: regular rhythm Heart sounds: no murmurs GI: Inspection: normal to inspection Auscultation: normal bowel sounds Skin: General skin exam: normal color and no rashes or lesions noted Neuro: General: patient oriented x3 Cranial nerves: Yes CN's II-XII intact bilaterally and Yes Equal, round and reactive pupils present Speech: normal speech Motor exam (neuro): 5/5 motor strength present throughout Sensory Exam: normal sensation Extrem: General: normal to inspection and no edema Psych: Mental Status: mental status grossly normal Affect: Sad affect present H&P: Results Labs Labs: Short CBC 08/10/20 Range/Units 00:42 WBC 15.6 H (4.5-10.0) K/mm3 Hgb 15.5 H D (12.0-15.0) g/dL Hct 47.7 H (37.0-47.0) % Plt Count 262 (150-375) k/mm3 BMP 08/10/20 00:42 Sodium 144 Potassium 4.0 Chloride 108 H Carbon Dioxide 24 BUN 12 Creatinine 0.70 Glucose 120 H Calcium 9.7 Liver Function 08/10/20 Range/Units 00:42 Total Bilirubin 1.2 (0.2-1.3) mg/dL AST 37 H (14-36) U/L ALT 17 (4-35) U/L Alkaline Phosphatase 105 (38-126) U/L Albumin 5.1 (3.5-5.1) g/dL Urine 08/10/20 Range/Units 01:10 Urine Color Y
--- NOTE | 2020-08-10 02:33 | PC.NURSE ---
converse with poison control gave a up date
--- NOTE | 2020-08-10 03:05 | ADMGEN ---
This patient, Suni Mcdaniel, was admitted to Intensive Care Unit-7. Patient/family oriented to hospital policies and general routines including ID bracelet, bed and alarms, visiting hours, pain management, procedures, bathroom and other care routines, personal items, smoking policy, room service/diet, and visiting hours. Information on how to activate the Rapid Response Team has been discussed. Patient/Family are encouraged to report perceived risks to care and to ask questions if they do not understand what they are told or what they should do.
--- NOTE | 2020-08-10 03:13 | ECG_ITS ---
Measurements Intervals [place] Rate: 94 P: 46 ND: 169 QRS: 48 QRSD: 76 T: -14 QT: 344 QTc: 430 Interpretive Statements SINUS RHYTHM NONSPECIFIC T-WAVE ABNORMALITY- INFERIOR LEADS BORDERLINE ECG Electronically Signed On 08-10-2020 11:38:13 CHEESE SPECIALIST by Chetser Sanabria D.O.
[2020-08-10] MEDS: SODIUM CHLORIDE 0.9% IV 1,000 ML 125 ML IV CONT (03:36)
[2020-08-10 04:13] LABS: Acetaminophen < 10 ug/mL (10-30); Salicylate < 1.0 mg/dL (2-20)
--- NOTE | 2020-08-10 06:18 | ECG_ITS ---
Measurements Intervals [place] Rate: 92 P: 28 MT: 185 QRS: 47 QRSD: 74 T: -9 QT: 350 QTc: 433 Interpretive Statements SINUS RHYTHM NONSPECIFIC T-WAVE ABNORMALITY- INFERIOR LEADS BORDERLINE ECG Electronically Signed On 08-10-2020 11:38:35 COTTAGE ATTENDANT by Chester Sanabria D.O.
--- NOTE | 2020-08-10 08:46 | WPDCNINT ---
Assessment and Plan Assessment and plan (1) Intentional overdose of selective serotonin reuptake inhibitor (SSRI): Qualifiers: Encounter type: initial encounter Qualified Code(s): T43.222A - Poisoning by selective serotonin reuptake inhibitors, intentional self-harm, initial encounter Code(s): T43.222A - Poisoning by selective serotonin reuptake inhibitors, intentional self-harm, initial encounter Status: Acute Assessment and Plan: Patient took unknown quantity of sertraline, poison control was notified from the ED, -monitor QRS and QTC -antiemetics as needed. -patient currently sinus rhythm rate controlled hemodynamically stable -medically stable for care coordination and crisis management evaluation -patient will need placement to a psychiatric facility (2) Suicidal ideation: Code(s): R45.851 - Suicidal ideations Status: Acute Assessment and Plan: Patient continues to remain suicidal -sitter in place -continue all other suicide precautions -crisis management to evaluate the patient for placement Additional Plan Code status: Full code Critical care time spent: 41 minutes This dictation may have been done utilizing a voice recognition system. Attempts have been made to correct errors. However, there may be uncorrected grammatical, spelling, and recognition errors present. Due to a high probability of clinically significant, life threatening deterioration, the patient required my highest level of preparedness to intervene emergently and I personally spent this critical care time directly and personally managing the patient. This critical care time included obtaining a history; examining the patient; pulse oximetry; ordering and review of studies; arranging urgent treatment with development of a management plan; evaluation of patient's response to treatment; frequent reassessment; and discussions with other providers. It was exclusive of separately billable procedures and treating other patients and teaching time. Please see Assessment and Plan section and the rest of the note for further information on patient assessment and treatment Weatherstrip Machine Operator Consult Note Consult date: 08/10/20 Time Seen: 07:09 Reason for consult: Intentional medication overdose, suicidal ideation HPI: Suni Mcdaniel is a 24 year old female with past medical history of twin , vaginal bleeding during presented the ED from home via EMS for intentional overdose. Patient stated that she has been dealing with increased depression CC as a child approximately 4 months ago and spent 100 days in the NICU. The baby just returned home approximately 3 weeks ago and states he has been struggling with depression throughout her recovery. The night prior to admission patient attempted to harm herself by taking an unknown amount of pain medications but shortly vomited most of the. On the day of admission patient took unknown amount of sertraline and also vomited shortly after that. Patient's called the EMS, patient did report suicidal ideation any homicidal ideation. Patient denies any recent illness, fevers, chills, chest pain, shortness of breath other symptoms. Patient fluids in the ED and transferred to the ICU for further management. Patient seen examined this morning in the ICU, is awake, this nods to questions but does not talk much as she is pretty withdrawn denies any pain, shortness of breath, abdominal pain, nausea vomiting. She she does not want to eat anything. Hemodynamically stable, heart rate is 85, blood pressure is 123/82, 98% O2 sats on room air. According the bedside nurse she is still suicidal Review of Systems Review of Systems: All systems reviewed & are unremarkable except as noted in HPI and below PMFSH Past Medical History Medical History Miscarriage Twin Vaginal bleeding during Surgical History Surgi
--- NOTE | 2020-08-10 09:29 | PM.IMPN ---
Progress Note: A&P Assessment and Plan (1) Intentional overdose of selective serotonin reuptake inhibitor (SSRI): Qualifiers: Encounter type: initial encounter Qualified Code(s): T43.222A - Poisoning by selective serotonin reuptake inhibitors, intentional self-harm, initial encounter Code(s): T43.222A - Poisoning by selective serotonin reuptake inhibitors, intentional self-harm, initial encounter Status: Acute Assessment and Plan: Medically stable for discharge to inpatient psych D/w claims associate and customer care team coach. (2) Suicidal ideation: Code(s): R45.851 - Suicidal ideations Status: Acute Assessment and Plan: Suicide precautions, Crisis intervention today. Subjective Date/time seen: 08/10/20 09:29 Interval history: Admitted 08/09 after taking approximately 30 tablets of sertraline 50mg. Hx depression. Stopped sertraline about 3 weeks ago. Said it was not helping. No PCP. Was receiving care from high school social studies teacher provider. 08/10: No flushing, cp, sob, palpitations, tremors, n/v, diarrhea. Review of Systems Review of Systems: All systems reviewed & are unremarkable except as noted in HPI and below Exam Narrative: Exam Narrative: HEENT: PERRL, sclerae nonicteric, pharyngeal mucosa pink and intact NECK: No JVD CHEST: Clear to auscultation. Normal effort. HEART: NL S1/S2, regular, no murmur ABDOMEN: BS+, soft, nontender, no mass, no bruits EXTREMITIES: No cyanosis, edema, or clubbing NEUROLOGIC: CN intact and symmetric to inspection. MUSCULOSKELETAL: Tone and strength symmetric. PSYCH: Alert. Oriented to person, place, and time. Affect flat. Mood depressed. Objective Data Vital Signs Vital Signs: Vital Signs - 24 hr 08/09/20 23:39 08/10/20 01:56 08/10/20 02:06 Temperature 98 F Pulse Rate 108 H 95 100 Respiratory Rate 21 H 18 12 Blood Pressure 131/94 H 149/92 H 122/92 H Pulse Oximetry 99 98 99 08/10/20 04:00 08/10/20 06:00 08/10/20 08:00 Temperature 98.6 F 99.0 F Pulse Rate 91 96 100 Respiratory Rate 20 19 17 Blood Pressure 121/83 107/68 126/82 Pulse Oximetry 100 100 99 Intake/Output Intake/Output: Intake & Output 08/07/20 08/08/20 08/09/20 08/10/20 23:59 23:59 23:59 23:59 Intake Total 1000 Balance 1000 Meds/Results Medications: Active Medications Generic Name Dose Route Start Last Admin Trade Name Murrayq PRN Reason Stop Dose Admin Sodium Chloride 1,000 mls @ 125 mls/hr 08/10/20 01:55 08/10/20 03:36 Normal Saline Iv IV CONT 125 mls/hr .Q8H KYLAH Administration Labs Labs: Laboratory Results - last 24 hr 08/10/20 08/10/20 08/10/20 00:42 00:42 00:42 WBC 15.6 H RBC 5.11 Hgb 15.5 H D Hct 47.7 H MCV 93.3 MCH 30.3 MCHC 32.5 RDW 12.9 Plt Count 262 MPV 11.0 H Immature Gran % (Auto) 0.6 H Neut % (Auto) 93.4 H Lymph % (Auto) 3.8 L [place] % (Auto) 1.9 L Eos % (Auto) 0.0 Baso % (Auto) 0.3 Lymph # (Auto) 0.60 L [place] # (Auto) 0.3 Eos # (Auto) 0.0 Baso # (Auto) 0.0 Abs Immat Gran (auto) 0.09 H Absolute Neuts (auto) 14.6 H Absolute Nucleated RBC 0.0 Nucleated RBC % 0.0 Sodium 144 Potassium 4.0 Chloride 108 H Carbon Dioxide 24 Anion Gap 12 BUN 12 Creatinine 0.70 Estim Creat Clear Calc 120 Estimated GFR > 60 Glucose 120 H Calcium 9.7 Total Bilirubin 1.2 AST 37 H ALT 17 Alkaline Phosphatase 105 Total Protein 9.0 H Albumin 5.1 TSH 0.312 L Urine Color Urine Appearance Urine pH Ur Specific [place] Urine Protein Urine Glucose (UA) Urine Ketones Ur Blood (Man) Urine Nitrate Urine Bilirubin Urine Urobilinogen Leukocyte Esterase Rfl Urine RBC Urine WBC Ur Squamous Epith Cells Urine Bacteria Urine Mucus Salicylates < 1.0 L Urine Opiates Screen Urine Methadone Screen Acetaminophen < 10 L Ur Barbiturates Screen Ur
--- NOTE | 2020-08-10 10:53 | PC.NURSE ---
Spoke with Lashanda Huizar from Poison Control at 0947, patient has been released from further follow-up.
[2020-08-10 19:42] LABS: SARS-CoV-2 RNA PCR Negative
--- NOTE | 2020-08-19 20:56 | P.DS_ITS ---
DS: Admitting Diagnosis Admitting Diagnosis Admitting Diagnosis: sertraline overdose DS: Discharge Diagnosis Discharge Diagnosis (1) Intentional overdose of selective serotonin reuptake inhibitor (SSRI): Qualifiers: Encounter type: initial encounter Qualified Code(s): T43.222A - Poisoning by selective serotonin reuptake inhibitors, intentional self-harm, initial encounter Code(s): T43.222A - Poisoning by selective serotonin reuptake inhibitors, intentional self-harm, initial encounter Status: Acute Assessment and Plan: Medically stable for discharge to inpatient psych D/w hydropulper operator and rn acute care. (2) Suicidal ideation: Code(s): R45.851 - Suicidal ideations Status: Acute Assessment and Plan: Suicide precautions, Crisis intervention today. DS: Summary Hospital Course Reason for hospitalization: sertraline overdose Hospital Course: Admitted 08/09 after taking approximately 30 tablets of sertraline 50mg. Hx depression. Stopped sertraline about 3 weeks ago. Said it was not helping. No PCP. Was receiving care from high school tutor provider. She experienced no cardiac abnormalities and vital signs remained stable during hospitalization. She had no flushing or other signs Or symptoms of serotonin syndrome. Other than mild hypokalemia, mild hemoconcentration, mild leukocytosis, and slightly low TSH her labs were unremarkable. She received IV fluids during observation as well as potassium supplementation. She voluntarily submitted to inpatient psychiatric care and was transferred in stable condition. Time Spent with Patient Time attestation: Total time spent providing and/or coordinating discharge services: Exam Narrative: Exam Narrative: HEENT: PERRL, sclerae nonicteric, pharyngeal mucosa pink and intact NECK: No JVD CHEST: Clear to auscultation. Normal effort. HEART: NL S1/S2, regular, no murmur ABDOMEN: BS+, soft, nontender, no mass, no bruits EXTREMITIES: No cyanosis, edema, or clubbing NEUROLOGIC: CN intact and symmetric to inspection. MUSCULOSKELETAL: Tone and strength symmetric. PSYCH: Alert. Oriented to person, place, and time. Affect flat. Mood depressed. Discharge Plan Discharge Consulting providers: Perla Pop ; Yoselyn Sommers ; Chester Sanabria Discharging Clinician: Ang Peña Patient Disposition: Psychiatric Hosp Activity: as tolerated Diet: as tolerated Patient Instructions: Depression (DC), Depression (DC) Discharge Orders: Discharge Order (Routine); Ordered 08/19/20 Ordered By: Ang Peña Discharge Medications: New acetaminophen [Tylenol] 325 mg tablet 650 mg PO Q4-6H PRN (Reason: pain) Qty: 10 RF: 0 Date of admission: 08/10/20 01:53 Primary Care Provider: PHYSICIAN,SENIOR C SOFTWARE ENGINEER Admitting Provider: Sergio Acosta Attending physician on admission: Ang Peña Condition: Stable Quality VTE Prophylaxis VTE prophylaxis: mechanical ordered
--- NOTE | 2020-08-23 14:35 | PM.TDS ---
Transfer Discharge Sum: Prov Provider Date of admission: 08/10/20 01:53 Primary care physician: LABORER LANDSCAPE PHYSICIAN Admitting clinician: Sergio Acosta MD Consults: 08/10/20 Consult to Physician Routine Comment: Consulting Provider: Yoselyn Sommers Reason for consultation: ICU management Has provider been notified: Yes DS: Admitting Diagnosis Admitting Diagnosis Admitting Diagnosis: sertraline overdose DS: Discharge Diagnosis Discharge Diagnosis (1) Intentional overdose of selective serotonin reuptake inhibitor (SSRI): Qualifiers: Encounter type: initial encounter Qualified Code(s): T43.222A - Poisoning by selective serotonin reuptake inhibitors, intentional self-harm, initial encounter Code(s): T43.222A - Poisoning by selective serotonin reuptake inhibitors, intentional self-harm, initial encounter Status: Acute Assessment and Plan: Medically stable for discharge to inpatient psych D/w photoradio operator and pharmacy customer care specialist. (2) Suicidal ideation: Code(s): R45.851 - Suicidal ideations Status: Acute Assessment and Plan: Suicide precautions, Crisis intervention today. Transfer Discharge Sum: Med Medications Active and Home Medications: none Transfer Discharge Sum: Hosp Hospital Course Hospital course: Suni Mcdaniel is a 24 year old female admitted for intentional SSRI overdose. She had mild hypokalemia and volume depletion addressed with IVF and potassium supplementation. She had no EKG abnormalities and no signs or symptoms of serotonin syndrome. She agreed to voluntary transfer to inpatient psychiatric service. Time Spent with Patient Time attestation: Total time spent providing and/or coordinating transfer services:35 min Total time spent: Greater than 30 minutes Exam Narrative: Exam Narrative: HEENT: PERRL, sclerae nonicteric, pharyngeal mucosa pink and intact NECK: No JVD CHEST: Clear to auscultation. Normal effort. HEART: NL S1/S2, regular, no murmur ABDOMEN: BS+, soft, nontender, no mass, no bruits EXTREMITIES: No cyanosis, edema, or clubbing NEUROLOGIC: CN intact and symmetric to inspection. MUSCULOSKELETAL: Tone and strength symmetric. PSYCH: Alert. Oriented to person, place, and time. Affect flat. Mood depressed.
== END 2020-08-10 22:00 ==
LOC: ANHED 23:57 → ANHICU 08-10 02:18
PROVIDERS: Admitting Provider Family Medicine; Emergency Provider Emergency Medicine; Visit Provider Internal Medicine
DX: T43.222A Poisoning by selective serotonin reuptake inhibitors, intentional self-harm, initial encounter (principal); R45.851 Suicidal ideations; F32.9 Major depressive disorder, single episode, unspecified; Z20.822 Contact with and (suspected) exposure to COVID-19
CPT/HCPCS: 36415; 80053; 80307; 81001; 81025; 84443; 85025; 93005; 96360; 96361; 99285; C9803; G0378; G0379; J7030; U0003; U0005

== ENCOUNTER 2020-11-12 19:15 | Emergency (ER) | payer OTHER, SELFPAY ==
--- NOTE | ~2020-11-12 | CT_ITS ---
EXAMINATION: CT abdomen pelvis w con DATE: 11/13/2020 00:15 INDICATION: Left lower quadrant abdominal pain TECHNIQUE: Computed tomography (CT) of the abdomen and pelvis was performed with 100 mL Omnipaque-350 intravenous contrast. Automated exposure control and iterative reconstruction technique were employe d. The dose-length product was 616.14 mGy-cm. COMPARISON: None FINDINGS: Lung bases are clear. Heart size is normal. No pericardial or pleural effusion. Liver, gallbladder, s pleen, pancreas, bilateral adrenal glands and kidneys are normal. Moderate amount of colonic stool wh ich could be seen with constipation. No abnormal bowel wall thickening or obstruction. Appendix is no rmal. Bladder is normal. T-shaped IUD in expected position within the endometrial canal of the anteve rted uterus. Thin rim of peripheral enhancement at appears to be a ruptured and partially collapsed 1 .5 cm corpus luteum cyst at the left ovary. Minimal likely physiologic free fluid in the pelvis. No a bscess or free intraperitoneal gas. Mild lumbar dextrocurvature. IMPRESSION: 1. 1.5 similar likely ruptured partially collapsed left corpus luteum cyst. No other acute intra-abdo irma/pelvic process. Reviewed, dictated and finalized at location A. IMPRESSION: 1. 1.5 similar likely ruptured partially collapsed left corpus luteum cyst. No other acute intra-abdominal/pelvic process.
[2020-11-12 19:43] VITALS: BP 128/91; PULSE 97; RESP 16; TEMP 37; O2SAT 99
[2020-11-12 20:03] LABS: Basophils Absolute Auto 0.1 K/mm3 (0.0-0.1); Basophils Percent Auto 0.9 % (0.2-1.2); Eosinophils Absolute Auto 0.1 K/mm3 (0-0.3); Eosinophils Percent Auto 1.9 % (0-4.4); Hematocrit 43.3 % (37.0-47.0); Immature Granulocyte Absolute 0.02 K/mm3 (0.00-0.031); Immature Granulocyte Percent A 0.3 % (0-0.5); Lymphocytes Absolute Auto 1.58 K/mm3 (0.9-3.2); Lymphocytes Percent Auto 23.4 % (18.3-44.2); Mean Corpuscular HGB Conc 32.3 g/dl (32-36); Mean Corpuscular Hemoglobin 29.9 pg (26-34); Mean Corpuscular Volume 92.5 fl (80-100); Mean Platelet Volume 10.4 fl (7.4-10.4); Monocytes Absolute Auto 0.4 K/mm3 (0.1-0.6); Monocytes Percent Auto 6.5 % (2.6-8.5); Neutrophils Absolute Auto 4.5 K/mm3 (1.3-6.7); Platelet Count Result 236 k/mm3 (150-375); Red Blood Count 4.68 M/mm3 (4.2-5.4); Red Cell Distribution Width 12.5 % (11.5-14.5); White Blood Count 6.8 K/mm3 (4.5-10.0)
[2020-11-12 20:12] LABS: Alanine Aminotransferase 13 U/L (4-35); Albumin Level 4.5 g/dL (3.5-5.1); Alkaline Phosphatase 83 U/L (38-126); Anion Gap 11 mmol/L (8-16); Aspartate Amino Transferase 27 U/L (14-36); Bilirubin,Total 0.6 mg/dL (0.2-1.3); Blood Urea Nitrogen 12 mg/dL (7-17); Calcium 9.5 mg/dL (8.4-10.2); Carbon Dioxide 23 mmol/L (22-30); Chloride 108 mmol/L (98-107); Estimated Glomerular Filt Rate > 60; Glucose 140 mg/dL (65-105); Lipase 143 U/L (23-300); Potassium 3.7 mmol/L (3.4-5.0); Sodium 142 mmol/L (137-145)
[2020-11-12 20:17] LABS: Add Urine Microscopic? YES; Appearance Urine Cloudy (Clear); Bacteria Urine Trace /hpf; Bilirubin Urine 1+ (Negative); Blood Urine Negative (Negative); Color Urine Yellow (Yellow); Glucose Urine UA Negative (Negative); Ketones Urine Negative (Negative); Leukocyte Esterase Ur Negative LEU/UL (Negative); Mucus Urine Rare /lpf; Nitrate Urine Negative (Negative); Protein Urine 2+ mg/dL (Negative); RBC Urine 0-2 /hpf (0-2); Squamous Epithelial Cell Urine Many /hpf (Few); WBC Urine 0-3 /hpf
[2020-11-12 20:26] LABS: Specific Grav Ur 1.032 (1.001-1.035)
[2020-11-13 00:02] VITALS: BP 129/95; PULSE 84; RESP 20; O2SAT 100
--- NOTE | 2020-11-13 00:48 | PC.NURSE ---
Pt requesting pain medication, rating pain 10/10. EDP notified.
--- NOTE | 2020-11-13 00:56 | ED.ABDPAIN ---
HPI - Abdominal Pain General Chief Complaint: Abdominal Pain Stated Complaint: abd pain x3 days Time Seen by Provider: 11/12/20 23:28 Source: patient and RN notes reviewed Mode of arrival: ambulatory Limitations: no limitations History of Present Illness HPI narrative: Patient is 24 years old white female drove herself to the emergency room because of intermittent left lower quadrant pain for over 1 year. Came back again 4 days ago. Denies any radiation, fever, chills, vomiting, diarrhea, constipation, vaginal bleeding or discharge. Patient is 3, para 3 0, IUD in July 2020. Patient had history of ovarian cyst and telling me this symptom today is not like her ovarian cyst symptoms before.. Patient does not smoke or drink or uses drugs, history of depression and anxiety. Related Data Allergies Allergy/AdvReac Type Severity Reaction Status Date / Time artichoke Allergy Severe Anaphylaxis Verified 11/12/20 23:45 Review of Systems Review of Systems: Narrative: CONSTITUTIONAL: Denies fever, chills, or sweats. EYES: Denies visual changes, redness, or discharge. ENT: Denies rhinorrhea, congestion, sore throat, or otalgia. CARDIOVASCULAR: Denies chest pain, palpitations, or edema. RESPIRATORY: Denies cough or dyspnea. GASTROINTESTINAL: Denies abdominal pain, nausea, vomiting, or diarrhea. GENITOURINARY: Denies dysuria or hematuria. SKIN: Denies rash or itching. MUSCULOSKELETAL: Denies back pain, joint pain, or myalgia. NEUROLOGIC: Denies headache, numbness, or weakness. PSYCHIATRIC: Denies anxiety or depression. PMFSH Past Medical History Medical History Miscarriage Twin Vaginal bleeding during Surgical History Surgical History Previous section Family History Family History Father Myocardial infarct Other CAD (coronary artery disease) Social History Social History Smoking status: Never smoker Alcohol intake: never Substance use: never Gender identity (if verbalized by the patient): Female Spiritual care concerns: No Exam Narrative: Exam Narrative: General appearance: Well-developed, well-nourished Skin: Normal color Head: Normocephalic, nontraumatic Eyes: Clear conjunctiva ENT: Oropharynx normal, ears normal, nose normal Neck: Supple, nontender Chest and respiratory: Airway patent, no respiratory distress, no accessory muscle use Heart: Regular rate/rhythm Abdomen: Soft, mild tenderness left lower quadrant, no guarding or rebound, no bruises or swelling or rash, no organomegaly, quiet bowel sounds Vascular: Normal peripheral pulses, normal capillary refill. 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 as tested, no gross motor deficit Course Course Emergency Course: Stable Vital Signs Vital signs: Vital Signs Temperature 37.0 C 11/12/20 19:43 Pulse Rate 97 11/12/20 19:43 Respiratory Rate 16 11/12/20 19:43 Blood Pressure 128/91 H 11/12/20 19:43 Pulse Oximetry 99 11/12/20 19:43 Temperature 37.0 C 11/12/20 19:43 Pulse Rate 84 11/13/20 00:02 Respiratory Rate 20 11/13/20 00:02 Blood Pressure 129/95 H 11/13/20 00:02 Pulse Oximetry 100 11/13/20 00:02 MDM - Abdominal Pain MDM Narrative Medical decision making narrative: Left lower quadrant pain, differential diagnosis as below, my plan to get labs, UA, CT abdomen pelvis with IV contrast, further plan to follow Differential D
[2020-11-13] MEDS: KETOROLAC 30 MG/ML VIAL (*BKC) IV PUSH (01:06)
[2020-11-13 01:09] VITALS: BP 123/96; PULSE 81; RESP 16; O2SAT 100
--- NOTE | 2020-11-13 01:40 | PC.NURSE ---
Pt rates 10/10 pain in abdomen. EDP made aware. EDP Anibal gave this RN verbal orders for 4mg IV Morphine and 4mg IV Zofran if pt was willing to stay in ED for 4 hours (since she did not have a ride home). Pt refused. States I just want to go home, take this IV out.
== END 2020-11-13 02:23 | disposition home or self-care (01) ==
PROVIDERS: Emergency Medicine; Emergency Provider Emergency Medicine
DX: R10.32 Left lower quadrant pain (principal); K59.09 Other constipation
CPT/HCPCS: 36415; 74177; 80053; 81001; 81025; 83690; 85025; 96374; 99284; J1885; Q9967

== ENCOUNTER 2021-03-21 21:18 | Emergency (ER) | payer OTHER, SELFPAY ==
--- NOTE | ~2021-03-21 | XR_ITS ---
EXAMINATION: XR knee LT 3V DATE: 03/21/2021 22:10 INDICATION: Left knee pain. TECHNIQUE: 3 views of left knee were obtained. COMPARISON: None. FINDINGS: Bone alignment is normal. No fracture. Joint spaces are well maintained. There is no knee j oint effusion. IMPRESSION: 1. Normal left knee. Reviewed, dictated and finalized at location A. IMPRESSION: 1. Normal left knee.
[2021-03-21 21:22] VITALS: BP 131/86; PULSE 106; RESP 17; TEMP 36.7; O2SAT 100
--- NOTE | 2021-03-21 21:56 | ED.GENADULT ---
HPI - General Adult General Chief complaint: Extremity Injury, Lower Stated complaint: left knee Time Seen by Provider: 03/21/21 21:33 History of Present Illness HPI narrative: Patient is a 25-year-old female presents the emergency department with chief complaint of left knee pain. Patient reports that she stumbled and her knee buckled. The patient denies falling denies hitting her head denies loss of consciousness the patient states that she has been unable to fully extend her leg reports it hurts whenever she puts weight on it reports the pain is not improved by anything reports she attempted to use a knee brace without success. Related Data Allergies Allergy/AdvReac Type Severity Reaction Status Date / Time artichoke Allergy Severe Anaphylaxis Verified 03/21/21 21:27 Review of Systems Review of Systems: A 10 system review of systems was completed on the patient and is negative except for what is stated in the HPI. Nursing and ancillary documentation was reviewed. [facility] Past Medical History Medical History Miscarriage Twin Vaginal bleeding during Surgical History Surgical History Previous section Family History Family History Father Myocardial infarct Other CAD (coronary artery disease) Social History Social History Smoking status: Never smoker Alcohol intake: never Substance use: never Gender identity (if verbalized by the patient): Female Spiritual care concerns: No Exam Narrative: GENERAL: Well-appearing, well-nourished, and in no acute distress. HEAD: Normocephalic, atraumatic. EYES: PERRLA and EOMI. ENT: Nares clear, no rhinorrhea or epistaxis. Mucous membranes moist. NECK: Supple. CHEST: Clear to auscultation. No respiratory distress. HEART: Regular rate and rhythm. No murmur heard. Normal peripheral pulses. ABDOMEN: Soft, nontender, nondistended, normal active bowel sounds. EXTREMITIES: Normal range of motion. No edema. There is tenderness palpation the left knee. There is a negative Samantha negative anterior and posterior drawer sign SKIN: Warm, dry, no rash. NEURO: No focal deficits. Alert and oriented x3. PSYCH: Normal mood and affect. Course Vital Signs Vital signs: Vital Signs Temperature 36.7 C 03/21/21 21:22 Pulse Rate 106 H 03/21/21 21:22 Respiratory Rate 17 03/21/21 21:22 Blood Pressure 131/86 03/21/21 21:22 Pulse Oximetry 100 03/21/21 21:22 Temperature 36.7 C 03/21/21 21:22 Pulse Rate 106 H 03/21/21 21:22 Respiratory Rate 17 03/21/21 21:22 Blood Pressure 131/86 03/21/21 21:22 Pulse Oximetry 100 03/21/21 21:22 Medical Decision Making Vital Signs Vital Signs: Vital Signs Temperature 36.7 C 03/21/21 21:22 Pulse Rate 106 H 03/21/21 21:22 Respiratory Rate 17 03/21/21 21:22 Blood Pressure 131/86 03/21/21 21:22 Pulse Oximetry 100 03/21/21 21:22 Temperature 36.7 C 03/21/21 21:22 Pulse Rate 106 H 03/21/21 21:22 Respiratory Rate 17 03/21/21 21:22 Blood Pressure 131/86 03/21/21 21:22 Pulse Oximetry 100 03/21/21 21:22 Discharge Plan Discharge Clinical Impression: Left knee sprain Qualifiers: Encounter type: initial encounter Involved ligament of knee: unspecified ligament Qualified Code(s): S83.92XA - Sprain of unspecified site of left knee, initial encounter Patient Disposition: Home, Self-Care Condition: Stable Instructions: Antibiotic Form Prescriptions: No Action polyethylene glycol 3350 [Miralax] 17 gram/dose powder 17 g PO QID Qty: 10 RF: 0 bisacodyl [Dulcolax (bisacodyl)] 10 mg suppository 10 mg RECTAL BID PRN (Reason: constipation) Qty: 10 RF: 0 Follow-up/Referrals: PHYSICIAN,SECURITIES VAULT SUPERVISOR
[2021-03-21] MEDS: KETOROLAC (*BKC) 60 MG/2 ML VIAL IM (22:04)
[2021-03-21 23:01] VITALS: BP 156/96; PULSE 95; RESP 18; TEMP 37.2; O2SAT 100
== END 2021-03-21 23:04 | disposition home or self-care (01) ==
PROVIDERS: Emergency Provider Emergency Medicine
DX: S83.92XA Sprain of unspecified site of left knee, initial encounter (principal); W18.40XA Slipping, tripping and stumbling without falling, unspecified, initial encounter
CPT/HCPCS: 73562; 96372; 99283; J1885

== ENCOUNTER 2021-06-18 11:50 | Emergency (ER) | payer OTHER, SELFPAY ==
[2021-06-18 12:29] VITALS: BP 150/91; PULSE 100; RESP 16; TEMP 37.2; O2SAT 100
[2021-06-18 14:19] VITALS: BP 142/96; PULSE 96; RESP 18; TEMP 36.2; O2SAT 100
--- NOTE | 2021-06-18 14:35 | PC.NURSE ---
pt brought into triage bay and evaluated by pa.
--- NOTE | 2021-06-18 14:35 | ED.GENADULT ---
HPI - General Adult General Chief complaint: Upper Respiratory Infection <NICHOLE Zayas Last Filed: 06/18/21 19:57> Stated complaint: covid exposure/chest pain <NICHOLE Zayas Last Filed: 06/18/21 19:57> Time Seen by Provider: 06/18/21 14:32 <NICHOLE Zayas Last Filed: 06/18/21 19:57> Source: patient <NICHOLE Zayas Last Filed: 06/18/21 19:57> Mode of arrival: ambulatory <NICHOLE Zayas Last Filed: 06/18/21 19:57> Limitations: no limitations <NICHOLE Zayas Last Filed: 06/18/21 19:57> History of Present Illness HPI narrative: Patient is 25 yo female with cough, burning with coughing, and congestion. Patient is Vaccinated with booster in March. Covid exposure 2 days ago. Taking mucinex. Not taking any tylenol or motrin. Patient works in [email or web address]. Patient is tearful because she does not want to be covid positive and give it to her children. <NICHOLE Zayas Last Filed: 06/18/21 19:57> Related Data Allergies/adverse reactions: Allergies Allergy/AdvReac Type Severity Reaction Status Date / Time artichoke Allergy Severe Anaphylaxis Verified 03/21/21 21:27 <NICHOLE Zayas Last Filed: 06/18/21 19:57> Review of Systems Review of Systems: CONSTITUTIONAL: Denies fever, chills, or sweats. EYES: Denies visual changes, redness, or discharge. ENT: Reports rhinorrhea, congestion, Denies otalgia. CARDIOVASCULAR: Denies chest pain, palpitations, or edema. RESPIRATORY: Reports cough Denies dyspnea. GASTROINTESTINAL: Denies abdominal pain, nausea, vomiting, or diarrhea. GENITOURINARY: Denies dysuria or hematuria. SKIN: Denies rash or itching. MUSCULOSKELETAL: Denies back pain, myalgia, or joint pain NEUROLOGIC: Denies headache, numbness, dizziness, or weakness. PSYCHIATRIC: Denies anxiety or depression. <Toño Lu PA-C - Last Filed: 06/18/21 19:57> [facility] Past Medical History Medical History: Medical History Miscarriage Twin Vaginal bleeding during <Toño Lu PA-C - Last Filed: 06/18/21 19:57> Surgical History Surgical History: Surgical History Previous section <Toño Lu PA-C - Last Filed: 06/18/21 19:57> Family History Family History: Family History Father Myocardial infarct Other CAD (coronary artery disease) <Toño Lu PA-C - Last Filed: 06/18/21 19:57> Social History Social History: Social History Smoking status: Never smoker Alcohol intake: never Substance use: never Gender identity (if verbalized by the patient): Female Spiritual care concerns: No <Toño Lu PA-C - Last Filed: 06/18/21 19:57> Exam Narrative: GENERAL: Well-appearing, well-nourished.Tearful. HEAD: Normocephalic, atraumatic. CHEST: Clear to auscultation. No respiratory distress. No wheezes rales or rhonchi HEART: Regular rate and rhythm. SKIN: Warm, dry, no rash. NEURO: Alert and oriented x3. PSYCH: Normal mood and affect. <Toño Lu PA-C - Last Filed: 06/18/21 19:57> Course Vital Signs Vital signs: Vital Signs Temperature 99 F 06/18/21 12:29 Pulse Rate 100 06/18/21 12:29 Respiratory Rate 16 06/18/21 12:29 Blood Pressure 150/91 H 06/18/21 12:29 Pulse Oximetry 100 06/18/21 12:29 Temperature 97.2 F L 06/18/21 14:19 Pulse Rate 96 06/18/21 14:19 Respiratory Rate 18 06/18/21 14:19 Blood Pressure 142/96 H 06/18/21 14:19 Pulse Oximetry 100 06/18/21 14:19 <Toño Lu PA-C - Last Filed: 06/18/21 19:57> Medical Decision Making MDM Narrative Medical decision making narrative: Patient vitals are stable. Patient not hypo
[2021-06-19 14:36] LABS: SARS-CoV-2 RNA PCR Negative
== END 2021-06-18 14:48 | disposition home or self-care (01) ==
PROVIDERS: Physician Assistant; Emergency Provider General Practice
DX: R05.9 Cough, unspecified (principal); Z20.822 Contact with and (suspected) exposure to COVID-19
CPT/HCPCS: 99283; C9803; U0003; U0005

== ENCOUNTER 2021-06-29 08:13 | Emergency (ER) | payer OTHER, SELFPAY ==
--- NOTE | 2021-06-29 08:23 | ED.URI ---
HPI - URI/Sore Throat General Chief Complaint: Upper Respiratory Infection Stated Complaint: sob Time Seen by Provider: 06/29/21 08:44 Source: patient and RN notes reviewed Mode of arrival: ambulatory Limitations: no limitations History of Present Illness HPI Narrative: 25-year-old female presents with concern for more than 2-week history of cough and feeling of not being able to get a full breath and chest burning. She reports she was seen in the ER on June 18, had had a cough for nearly a week up until that point. Reports on June 18 she had a negative PCR COVID test. Reports she was given Tessalon Perles. Reports symptoms have worsened with the feeling of not being able to take a full breath and chest burning. She denies fever. Reports cough. She denies nasal congestion, rhinorrhea, sore throat. Reports she has been taking [id number] medications which help her sleep but otherwise are not effective. She denies history of asthma. MD elicited complaint: cough Related Data Home Medications Medication Instructions Recorded Confirmed bupropion HCl mg PO 06/29/21 bupropion HCl mg PO 06/29/21 buspirone mg 06/29/21 hydroxyzine HCl 06/29/21 lamotrigine 06/29/21 quetiapine 06/29/21 quetiapine mg PO 06/29/21 Allergies Allergy/AdvReac Type Severity Reaction Status Date / Time artichoke Allergy Severe Anaphylaxis Verified 03/21/21 21:27 Review of Systems Review of Systems: CONSTITUTIONAL: Denies malaise, chills, sweats, or fever. EYES: Denies visual changes, redness, or discharge. ENT: Denies rhinorrhea, congestion, sinus pain, otalgia and sore throat. CARDIOVASCULAR: Denies chest pain, palpitations, or edema. RESPIRATORY: Reports cough, chest burning, feeling of not being able to take a full GASTROINTESTINAL: Denies abdominal pain, nausea, vomiting, diarrhea SKIN: Denies rash or itching. MUSCULOSKELETAL: Denies myalgia. NEUROLOGIC: Denies headache. All systems reviewed & are unremarkable except as noted in HPI and below PMFSH Past Medical History Medical History Miscarriage Twin Vaginal bleeding during Surgical History Surgical History Previous section Family History Family History Father Myocardial infarct Other CAD (coronary artery disease) Social History Social History Smoking status: Never smoker Alcohol intake: never Substance use: never Gender identity (if verbalized by the patient): Female Spiritual care concerns: No Comments At time of signature, agree with nursing past medical, surgical, social and family history. There is no relevant family history pertinent to the presenting complaint Exam Narrative: GENERAL: Well-appearing, well-nourished, and in no acute distress. HEAD: Normocephalic EYES: PERRLA, conjunctivae clear ENT: Nares clear, turbinates edematous and erythematous, clear discharge. Mucous membranes moist. TM pearly tiwari with dull light reflex bilaterally; no tragal tenderness. Oropharynx not erythematous without lesions. Tonsils not enlarged and without exudate, no drooling, no hoarseness, no trismus, uvula midline. NECK: Supple. No lymphadenopathy CHEST: Expiratory wheeze in the left upper and lower lung, otherwise clear to auscultation, breath sounds equal. No rhonchi, rales, or stridor. No respiratory distress, speaks in full sentences. HEART: Regular rate and rhythm. No murmur heard. SKIN: Warm, dry, no rash. NEURO: Alert and oriented x3. PSYCH: Normal mood and affect Course Course Emergency Course: Patient is aware of diagnosis, understands and agrees to treatment plan. Anticipatory guidance given. Patient agrees to follow-up as directed and is aware of reasons to seek care at the
[2021-06-29 08:24] VITALS: BP 133/90; PULSE 78; RESP 16; TEMP 36.2; O2SAT 100
== END 2021-06-29 09:10 | disposition home or self-care (01) ==
PROVIDERS: Emergency Provider Nurse Practitioner
DX: R06.02 Shortness of breath (principal); R06.2 Wheezing
CPT/HCPCS: 99213; G0463

== ENCOUNTER 2021-09-20 10:22 | Emergency (ER) | payer OTHER, SELFPAY ==
--- NOTE | ~2021-09-20 | CT_ITS ---
EXAMINATION: CT abdomen pelvis w con EXAM DATE: 09/20/2021 11:24 INDICATION: LLQ abd pain w/ n/v. TECHNIQUE: Spiral CT of the abdomen and pelvis was performed following intravenous injection of 100 m L Omnipaque 350. Axial, coronal and sagittal images of the abdomen and pelvis were reviewed. The do se-length product (DLP) for this examination was 642.28 mGy-cm. The exposure was tailored according to patient size (auto mA exposure control), and iterative reconstruction (ASIR) was used as additiona l dose reduction technique. Comparison is made to prior examination from 11/13/2020. FINDINGS: The liver, spleen, adrenal glands and pancreas are unremarkable. Gallbladder is unremarkab le. No biliary obstruction. Portal and splenic veins are patent. Kidneys enhance symmetrically. T here is no hydronephrosis. There is a 3.67 m left ovarian cyst, likely the dominant follicle, or a he morrhagic cyst which has not yet ruptured. The IUD is in expected position. The bladder is unremarka ble. There is no retroperitoneal or pelvic lymphadenopathy. There are no findings to suggest appendicitis. The stomach and small bowel are unremarkable. There is moderate amount of colonic stool. No free intraperitoneal gas. The heart is normal in size. T here are no pericardial or pleural effusions. There is 3 mm left lower lobe noncalcified granuloma u nchanged. The bones are unremarkable. IMPRESSION: 1. Moderate amount of colonic stool. 2. Left ovarian 3.6 cm unruptured physiologic or hemorrhagic cyst. 3. IUD in position. Reviewed, dictated and finalized at location A.
[2021-09-20 10:25] VITALS: BP 157/90; PULSE 115; RESP 18; TEMP 37.1; O2SAT 100
[2021-09-20] MEDS: SODIUM CHLORIDE 0.9% IV 500 ML 999 ML IV CONT (10:48)
[2021-09-20] MEDS: ONDANSETRON INJ 4 MG/2 ML VIAL IV PUSH (10:51)
[2021-09-20 10:57] LABS: Basophils Absolute Auto 0.1 K/mm3 (0.0-0.1); Basophils Percent Auto 0.9 % (0.2-1.2); Eosinophils Absolute Auto 0.1 K/mm3 (0-0.3); Eosinophils Percent Auto 0.8 % (0-4.4); Hematocrit 39.9 % (37.0-47.0); Hemoglobin 13.1 g/dL (12.0-15.0); Immature Granulocyte Absolute 0.02 K/mm3 (0.00-0.031); Immature Granulocyte Percent A 0.3 % (0-0.5); Lymphocytes Absolute Auto 1.17 K/mm3 (0.9-3.2); Lymphocytes Percent Auto 15.2 % (18.3-44.2); Mean Corpuscular HGB Conc 32.8 g/dl (32-36); Mean Corpuscular Hemoglobin 30.4 pg (26-34); Mean Corpuscular Volume 92.6 fl (80-100); Mean Platelet Volume 10.5 fl (7.4-10.4); Monocytes Absolute Auto 0.5 K/mm3 (0.1-0.6); Monocytes Percent Auto 6.2 % (2.6-8.5); Neutrophils Absolute Auto 5.9 K/mm3 (1.3-6.7); Neutrophils Percent Auto 76.6 % (45.5-73.1); Platelet Count Result 223 k/mm3 (150-375); Red Blood Count 4.31 M/mm3 (4.2-5.4); Red Cell Distribution Width 12.3 % (11.5-14.5); White Blood Count 7.7 K/mm3 (4.5-10.0)
[2021-09-20 11:01] LABS: Alanine Aminotransferase 14 U/L (4-35); Albumin Level 4.7 g/dL (3.5-5.1); Alkaline Phosphatase 82 U/L (38-126); Anion Gap 10 mmol/L (8-16); Aspartate Amino Transferase 30 U/L (14-36); Bilirubin,Total 0.5 mg/dL (0.2-1.3); Blood Urea Nitrogen 16 mg/dL (7-17); Carbon Dioxide 23 mmol/L (22-30); Chloride 105 mmol/L (98-107); Estimated CRCL calculation 107 ml/min; Estimated Glomerular Filt Rate > 60; Glucose 106 mg/dL (65-110); Lipase 98 U/L (23-300); Potassium 3.8 mmol/L (3.4-5.0); Sodium 138 mmol/L (137-145)
--- NOTE | 2021-09-20 11:02 | ED.ABDPAIN ---
HPI - Abdominal Pain General Chief Complaint: Abdominal Pain Stated Complaint: feel like my insides are falling out Time Seen by Provider: 09/20/21 10:25 Source: patient History of Present Illness HPI narrative: Patient presents with left lower quadrant abdominal pain. Reports she has had symptoms for 1 to 2 weeks and appears to be getting worse. Symptoms are associated with nausea and vomiting she denies any diarrhea. Scribes a sensation that her insides are falling out. Has had prior C-sections and feels like her postoperative pain. 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 Denies any fevers or chills she denies any known sick contacts. She has any vaginal bleeding or discharge Related Data Home Medications Medication Instructions Recorded Confirmed bupropion HCl mg PO 06/29/21 bupropion HCl mg PO 06/29/21 buspirone mg 06/29/21 hydroxyzine HCl 06/29/21 lamotrigine 06/29/21 quetiapine 06/29/21 quetiapine mg PO 06/29/21 Allergies Allergy/AdvReac Type Severity Reaction Status Date / Time artichoke Allergy Severe Anaphylaxis Verified 03/21/21 21:27 Review of Systems Review of Systems: CONSTITUTIONAL: Denies fever, chills, or sweats. EYES: Denies visual changes, redness, or discharge. ENT: Denies rhinorrhea, congestion, sore throat, or otalgia. CARDIOVASCULAR: Denies chest pain, palpitations, or edema. RESPIRATORY: Denies cough or dyspnea. GASTROINTESTINAL: Abdominal pain, nausea, vomiting GENITOURINARY: Denies dysuria or hematuria. SKIN: Denies rash or itching. MUSCULOSKELETAL: Denies back pain, joint pain, or myalgia. NEUROLOGIC: Denies headache, numbness, dizziness, or weakness. PSYCHIATRIC: Denies anxiety or depression. All systems reviewed & are unremarkable except as noted in HPI and below PMFSH Past Medical History Medical History Miscarriage Twin Vaginal bleeding during Surgical History Surgical History Previous section Family History Family History Father Myocardial infarct Other CAD (coronary artery disease) Social History Social History Smoking status: Never smoker Alcohol intake: never Substance use: never Gender identity (if verbalized by the patient): Female Spiritual care concerns: No Exam Narrative: GENERAL: Well-appearing, well-nourished, and in no acute distress. HEAD: Normocephalic, atraumatic. EYES: PERRLA and EOMI. ENT: Nares clear, no rhinorrhea or epistaxis. Mucous membranes moist. NECK: Supple. No masses. No JVD ABDOMEN: Moderate left lower quadrant abdominal pain no abdominal wall defect no rebound or guarding no masses soft, nondistended. EXTREMITIES: Normal range of motion. No edema. SKIN: Warm, dry, no rash. NEURO: No focal deficits. Alert and oriented x3. PSYCH: Normal mood and affect. Course Reevaluation(s) Reevaluation #1: Patient resting comfortably results and plan reviewed with patient. Patient is comfortable outpatient plan. Patient had ultrasound in July cyst measured the liver 2 cm at that time given the increase in size refer to ENGINEERING LIBRARIAN for further evaluation. Date: 09/20/21 Time: 12:00 Vital Signs Vital signs: Vital Signs Temperature 37.1 C 09/20/21 10:25 Pulse Rate 115 H 09/20/21 10:25 Respiratory Rate 18 09/20/21 10:25 Blood Pressure 157/90 H 09/20/21 10:25 Pulse Oximetry 100 09/20/21 10:25 Temperature 37.1 C 09/20/21 10:25 Pulse Rate 87 09/20/21 12:10 Respiratory Rate 16 09/20/21 12:10 Blood Pressure 142/72 H 09/20/21 12:10 Pulse Oximetry 99 09/20/21 12:10 MDM - Abdominal Pain MDM Narrative Medical decision making narrative: H&P as above, vss, pt looks cli
[2021-09-20 11:13] LABS: Add Urine Microscopic? YES; Appearance Urine Cloudy (Clear); Bilirubin Urine Negative (Negative); Blood Urine Negative (Negative); Color Urine Yellow (Yellow); Glucose Urine UA Negative (Negative); Ketones Urine Trace mg/dL (Negative); Leukocyte Esterase Ur Negative LEU/UL (Negative); Mucus Urine Rare /lpf; Nitrate Urine Negative (Negative); Protein Urine Negative (Negative); Specific Grav Ur 1.029 (1.001-1.035); Squamous Epithelial Cell Urine Many /hpf (Few); Urobilinogen Urine Negative mg/dL (<2.0); WBC Urine 0-3 /hpf
--- NOTE | 2021-09-20 11:15 | PC.NURSE ---
pt in CT at this time.
[2021-09-20 12:10] VITALS: BP 142/72; PULSE 87; RESP 16; O2SAT 99
== END 2021-09-20 12:12 | disposition home or self-care (01) ==
PROVIDERS: Emergency Provider Emergency Medicine
DX: R10.32 Left lower quadrant pain (principal); N83.202 Unspecified ovarian cyst, left side; Z97.5 Presence of (intrauterine) contraceptive device
CPT/HCPCS: 36415; 74177; 80053; 81001; 81025; 83690; 85025; 96365; 96375; 99284; J0131; J2405; J7040; Q9967

== ENCOUNTER 2021-09-27 02:26 | Emergency (ER) | payer OTHER, SELFPAY ==
[2021-09-27 02:29] VITALS: BP 139/98; PULSE 93; RESP 16; TEMP 36.6; O2SAT 100
--- NOTE | 2021-09-27 02:59 | ED.FEMALEGU ---
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 She had an ovarian cyst. She states she been dealing with this pain for months now. She has been seen in the past and given a prescription for hydrocodone. She is no longer has any medication. She is scheduled to see her MECHANISM ASSEMBLER this coming Wednesday. She states the pain got so bad that she had to leave work tonight and come to the emergency room to be evaluated. She has an IUD in place. She is a 2 para 3 got a set of twins. No urinary complaints. No chills or fevers. Related Data Home Medications Medication Instructions Recorded Confirmed bupropion HCl mg PO 06/29/21 bupropion HCl mg PO 06/29/21 buspirone mg 06/29/21 hydroxyzine HCl 06/29/21 lamotrigine 06/29/21 quetiapine 06/29/21 quetiapine mg PO 06/29/21 Allergies Allergy/AdvReac Type Severity Reaction Status Date / Time artichoke Allergy Severe Anaphylaxis Verified 09/27/21 02:32 Review of Systems Review of Systems: CONSTITUTIONAL: Denies fever, chills, or sweats. CARDIOVASCULAR: Denies chest pain, palpitations, or edema. RESPIRATORY: Denies cough or dyspnea. GASTROINTESTINAL: Denies nausea, vomiting, or diarrhea. Pain in the left suprapubic region. GENITOURINARY: Denies dysuria or hematuria. SKIN: Denies rash or itching. MUSCULOSKELETAL: Denies back pain, joint pain, or myalgia. NEUROLOGIC: Denies headache, numbness, or weakness. PSYCHIATRIC: Denies anxiety or depression. [facility] Past Medical History Medical History Miscarriage Twin Vaginal bleeding during Surgical History Surgical History Previous section Family History Family History Father Myocardial infarct Other CAD (coronary artery disease) Social History Social History Smoking status: Never smoker Alcohol intake: never Substance use: never Gender identity (if verbalized by the patient): Female Spiritual care concerns: No Exam Narrative: APPEARANCE: Well appearing and well-nourished. Very emotional and crying Head normocephalic and atraumatic. EYES: PERRLA/EOMI, conjunctivae very clear. NOSE: Normal with no drainage EARS:TMS clear Re Miner, with good light reflex. THROAT: Pharynx clear, no exudate. NECK: Supple. No adenopathy, no masses. RESPIRATORY: Airway patent, respirations nonlabored. Clear to auscultation bilaterally, no rales, rhonchi, wheezing. CARDIOVASCULAR: Regular rate and rhythm without murmurs, rubs, or gallops. ABDOMINAL: Focal tenderness in the left suprapubic region. No masses palpated. No rebound rigidity guarding. Normal bowel sounds. Musculoskeletal: Moves all extremities. Strength/ROM intact, No edema, No calf tenderness. NEURO: Alert. Cranial nerves II through XII intact. Normal gait. Good coordination. Nonfocal examination. SKIN:: Warm, dry. Normal Color PSYCHIATRIC: Normal affect/mood, normal interaction Course Reevaluation(s) Reevaluation #1: Patient appears to be in no more distress for pain like she was when she got here. Reviewed with her my findings from reviewing her records which shows a 3.4 cm left ovarian cyst. Reiterated with her that she needs to keep that appointment she has with her MECHANISM ASSEMBLER on Wednesday. Date: 09/27/21 Time: 03:45 Vital Signs Vital signs: Vital Signs Temperature 97.9 F 09/27/21 02:29 Pulse Rate 93 09/27/21 02:29 Respiratory Rate 16 09/27/21 02:29 Blood Pressure 139/98 H 09/27/21 02:29 Pulse Oximetry
[2021-09-27] MEDS: KETOROLAC (*BKC) 60 MG/2 ML VIAL IM (03:01)
[2021-09-27 03:13] LABS: Bilirubin Urine Negative (Negative); Color Urine Yellow (Yellow); Glucose Urine UA Negative (Negative); Ketones Urine Negative (Negative); Leukocyte Esterase Ur Negative LEU/UL (Negative); Nitrate Urine Negative (Negative); Protein Urine Negative (Negative); Specific Grav Ur 1.025 (1.001-1.035); Urobilinogen Urine 0.2 mg/dL (<2.0); pH Urine 6.5 (5.0-9.0)
[2021-09-27 03:15] LABS: Add Urine Microscopic? YES; Appearance Urine Sl Cloudy (Clear); Blood Urine Trace-Intact (Negative)
[2021-09-27 03:16] LABS: Bacteria Urine Trace /hpf; Mucus Urine Rare /lpf; RBC Urine 0-2 /hpf (0-2); Squamous Epithelial Cell Urine Many /hpf (Few); WBC Urine 0-3 /hpf
== END 2021-09-27 04:03 | disposition home or self-care (01) ==
PROVIDERS: Emergency Provider Emergency Medicine
DX: N83.202 Unspecified ovarian cyst, left side (principal)
CPT/HCPCS: 81001; 81025; 96372; 99283; J1885

== ENCOUNTER 2021-12-02 15:01 | Outpatient (CLI) | payer OTHER, SELFPAY ==
--- NOTE | ~2021-12-02 | US_ITS ---
EXAMINATION: US pelvic complete w TV DATE: 12/02/2021 15:56 INDICATION: Left pelvic pain. TECHNIQUE: Multiple transabdominal and transvaginal sonographic images of the pelvis were obtained. COMPARISON: CT abdomen and pelvis 09/20/2021 FINDINGS: TRANSABDOMINAL ULTRASOUND: The uterus measures 8.8 x 4.5 x 7.0 cm. There is no free fluid in the pelvis. TRANSVAGINAL ULTRASOUND: The endometrial complex measures 5 mm in thickness. There is an intrauterine device in expected posit ion. The right ovary measures 2.9 x 1.9 x 1.7 cm. The left ovary measures 3.6 x 2.1 x 2.7 cm. There i s a 2.1 cm dominant follicle in left ovary. There is normal vascular flow in the ovaries. IMPRESSION: 1. Normal ovaries. 2. Intrauterine device in expected position. Reviewed, dictated and finalized at location A.
== END 2021-12-02 15:02 | disposition home or self-care (01) ==
PROVIDERS: Visit Provider Student in an Organized Health Care Education/Training Program
DX: R10.2 Pelvic and perineal pain (principal); Z97.5 Presence of (intrauterine) contraceptive device
CPT/HCPCS: 76830; 76856

== ENCOUNTER 2021-12-26 01:36 | Day surgery (SDC) | payer OTHER, SELFPAY ==
[2021-12-22 15:47] VITALS: BMI 21.9
--- NOTE | 2021-12-22 15:51 | PC.NURSE ---
Report to the Outpatient Waiting Room, entrance under the green pavilion located off [facility], at time 0930 on date 12/26/21. OR Time: 1130. - You and your visitor will be asked a series of questions to screen for COVID 19 for your protection. - Only one visitor is allowed at this time. - The patient visitor is requested to leave or wait in car when not with patient. - A mask is required within the hospital. Patients may have clear liquids (water, carbonated beverages, clear teas, apple juice) until 3 hours prior to surgery (0830) with a maximum of 20 ounces. - No food from midnight until time of surgery Take the following medications with a SIP of water the morning of surgery: BUPROPION, BUSPIRONE, HYDROXYZINE (IF NEEDED), LAMOTRIGINE Medications to discontinue per physician: N/A Date to take last dose: N/A Please no make-up, nail maldivian, hairspray, perfume, deodorant, or body powder the day of surgery. No jewelry (including any body piercings) or valuables the day of surgery, leave them at home. Please take a shower or bath the night before, or the morning of, surgery with an antibacterial soap. Wear comfortable, loose fitting clothing. - Jewelry must be removed prior to entering the operating room. Rings and piercings that are not removed may be cut off. - The hospital will not accept responsibility for valuables. - Please leave all valuables, including medications, at home the day of surgery. If you are going home after surgery, a licensed bottom hoop driver must drive you home. - NO public transportation without another adult. - We recommend that an adult stay with you for 24 hours following discharge. - We also recommend that you do not drive, make important decision, drink alcoholic beverages, or take any drugs that were not prescribed by your health care provider for at least 24 hours after your discharge time. Follow any additional instructions given to you from your surgeon. If you or anyone in your household have experienced Covid symptoms in the past week, please notify your surgeon or the nurse liaison at the phone number below for possible testing. Telephone instructions given to PT - MARICHUY FERNANDEZ and asked if any additional questions and then verbalized understanding. Patient advised to call surgeon office or pre surgery nurse liaison [phone] if any additional questions.
--- NOTE | 2021-12-25 15:27 | PM.IMHP ---
H&P: HPI History of Present Illness Date/Time: 12/25/21 15:27 Chief Complaint: Pelvic pain Narrative: Patient is a 26yo who presented to gynecology office in 09/2021 for evaluation of pelvic pain and ovarian cyst.? Patient reported gradual onset of left lower quadrant pain a few months prior to presentation and reported pain as severe and debilitating.? She has a known left ovarian cyst that has slightly decreased in size from 3.6cm to 2.1cm, but has not completely resolved.? Pain medication that patient was prescribed was ineffective. Although she has an IUD in place, she was prescribed a short course of OCPs to see if pain would subside, which it did not. Decision was made to proceed with a diagnostic, possible, laparoscopy for further evaluation and possible management. In general, patient doing well. Review of Systems Review of Systems: All systems reviewed & are unremarkable except as noted in HPI and below Constitutional: Constitutional: Reports as per HPI and Reports no additional constitutional complaints Eyes: Eyes: Reports as per HPI and Reports no additional eye complaints ENT: Reports system reviewed and no additional complaints, except as documented and Reports as per HPI Cardiovascular: Cardiovascular: Reports as per HPI and Reports no additional cardiovascular complaints Respiratory: Respiratory: Reports as per HPI and Reports no additional respiratory complaints Gastrointestinal: Gastrointestinal: Reports as per HPI and Reports no additional gastrointestinal complaints Genitourinary: Genitourinary: Reports no additional female genitourinary complaints and Reports as per HPI Musculoskeletal: Musculoskeletal: Reports no additional musculoskeletal complaints and Reports as per HPI Integumentary/Breasts: Skin/Breast: Reports system reviewed and no additional complaints, except as docu and Reports as per HPI Neurologic: Reports system reviewed and no additional complaints, except as documented and Reports as per HPI Psychiatric: Psychiatric: Reports no additional psychiatric complaints and Reports as per HPI Endocrine: Endocrine: Reports no additional endocrine complaints and Reports as per HPI Hematologic/Lymphatic: Hematologic/Lymphatic: Reports no additional hematologic/lymphatic complaints and Reports as per HPI Allergic/Immunologic: Allergic/Immunologic: Reports no additional allergic/immunologic complaints and Reports as per HPI PMF Past Medical History Medical History Miscarriage Twin Vaginal bleeding during Surgical History Surgical History Previous section x2 Family History Family History Father Myocardial infarct Other CAD (coronary artery disease) Social History Social History Smoking status: Never smoker Alcohol intake: never Substance use: current Substance use type: marijuana Gender identity (if verbalized by the patient): Female Spiritual care concerns: No Meds Home Medications and Allergies Home Medications Medication Instructions Recorded Confirmed Type bupropion HCl 150 mg 24 hr tablet, 150 mg PO DAILY 06/29/21 12/22/21 History extended release bupropion HCl 300 mg 24 hr tablet, 300 mg PO DAILY 06/29/21 12/22/21 History extended release buspirone 15 mg tablet 15 mg PO TID 06/29/21 12/22/21 History hydroxyzine HCl 50 mg tablet 50 mg PO TID PRN Anxiety 06/29/21 12/22/21 History lamotrigine 100 mg tablet 100 mg PO BID 06/29/21 12/22/21 History quetiapine 200 mg tablet,extended 200 mg PO HS 06/29/21 12/22/21 History release 24 hr levonorgestrel 20 mcg/24 hours (7 1 device intrauterine ONCE 11/20/21 12/22/21 History yrs) 52 mg intrauterine device (Mirena) ondansetron 4 mg disintegrating 4 mg PO
[2021-12-26] VITALS (9 sets, daily range): BP systolic 119–133; BP diastolic 81–92; PULSE 72–108; RESP 11–20; TEMP 36.7–36.8; O2SAT 99–100
[2021-12-26] MEDS: ACETAMINOPHEN 500 MG TABLET 1000 MG PO (10:18)
[2021-12-26] MEDS: LACTATED RINGERS 1,000 ML 30 ML IV CONT ×2 (10:25→12:37)
[2021-12-26] MEDS: KETOROLAC 15 MG/ML VIAL (*BKC) IV PUSH (10:26)
--- NOTE | 2021-12-26 10:48 | WPDHPUPDATE1 ---
History and Physical Update Update Date/Time: 12/26/21 10:48 History and Physical has been reviewed, including an updated exam of the patient. There are NO changes in the patient's condition. Risks, benefits, and alternatives have been discussed and questions answered. Patient agrees to proceed with procedure.
--- NOTE | 2021-12-26 10:59 | WPDANESEPPF ---
Anes - Initial Pre Proc Eval Procedure: Operation Date: 12/26/21 11:30 Proposed Procedures p Diagnostic Laparoscopy, Possible Operative Laparoscopy, Possible Left Salpingo Oophorectomy - Jolanta Lake MD Date/Time: 12/26/21 10:59 Surgeon: Jolanta Lake MD Pre Op Diagnosis: pelvic pain, ovarian cyst Patient Data Age: 26 Gender: F Height: 1.83 m Weight: 74.5 kg Last Vital Signs Temp 98.0 F 12/26/21 09:44 Pulse 87 12/26/21 09:44 Resp 20 12/26/21 09:44 BP 133/92 H 12/26/21 09:44 Pulse Ox 99 12/26/21 09:44 O2 Del Method Room Air 12/26/21 09:44 Allergies Allergy/AdvReac Type Severity Reaction Status Date / Time artichoke Allergy Severe Anaphylaxis Verified 12/22/21 15:44 Home Medications Medication Instructions Recorded Confirmed Type bupropion HCl 150 mg 24 hr tablet, 150 mg PO DAILY 06/29/21 12/26/21 History extended release bupropion HCl 300 mg 24 hr tablet, 300 mg PO DAILY 06/29/21 12/26/21 History extended release buspirone 15 mg tablet 15 mg PO TID 06/29/21 12/26/21 History hydroxyzine HCl 50 mg tablet 50 mg PO TID PRN Anxiety 06/29/21 12/26/21 History lamotrigine 100 mg tablet 100 mg PO BID 06/29/21 12/26/21 History quetiapine 200 mg tablet,extended 200 mg PO HS 06/29/21 12/26/21 History release 24 hr levonorgestrel 20 mcg/24 hours (7 1 device intrauterine ONCE 11/20/21 12/22/21 History yrs) 52 mg intrauterine device (Mirena) ondansetron 4 mg disintegrating 4 mg PO Q6H PRN nausea and 11/21/21 12/26/21 Rx tablet vomiting #30 tabs Patient hx anesthesia problems: none Family hx anesthesia problems: none Results Review: All pre-operative results and documents have been reviewed as part of the pre-operative evaluation. [facility] Past Medical History Medical History Miscarriage Twin Vaginal bleeding during Surgical History Surgical History Previous section x2 Family History Family History Father Myocardial infarct Other CAD (coronary artery disease) Social History Social History Smoking status: Never smoker Alcohol intake: never Substance use: current Substance use type: marijuana Living arrangements: with family Gender identity (if verbalized by the patient): Female Spiritual care concerns: No Anes - Eval Final PreProcedure Day of Procedure 12/26/21 10:59 Patient weight: normal Heart: regular rate and rhythm Lungs: clear to auscultation Airway: Mallampati scale class II Neurological: alert and oriented Last oral intake: >/= 8 hours ASA classification: II Emergent: no Anesthetic plan: proceed Anesthesia type and monitoring: general ETT and standard monitoring Results Review: All pre-operative results and documents have been reviewed as part of the pre-operative evaluation. Informed Consent: The patient's anesthetic plan and its attendant risks and benefits were discussed with the patient/family/POA. Questions were solicited and answers provided to the satisfaction of the patient/family/POA.
[2021-12-26] MEDS: BUPIVACAINE/EPINEPHRINE 0.25% 50 ML VIAL 30 ML INFILTRATE (12:16)
--- NOTE | 2021-12-26 12:32 | W.PM.PROC2 ---
Procedure Note - Detailed Date of Procedure 12/26/21 Pre-op Diagnosis pelvic pain, ovarian cyst Post-op Diagnosis Same Procedure Performed Laparoscopic left salpingo-oophorectomy Lysis of adhesions Surgeon Jolanta Lake MD Product Marketing Specialist [facility] Anesthesia General Findings Adhesions noted from anterior surface of uterus to anterior pelvic wall, otherwise, normal appearing uterus, ovaries and fallopian tubes bilaterally, left ovary and tube appeared to be slightly more tethered towards pelvis, likely due to visualized portion of liver and gallbladder also appear normal Description of Procedure The patient was taken to the operating room where she self-transferred to the operating room table. She was placed in dorsal supine position. General anesthesia was administered and found to be adequate. The patient was then repositioned in dorsal lithotomy position with use of Jose R stirrups and arms were carefully tucked at her side. She was prepped and draped in the usual sterile fashion. A red rubber catheter was used to drain the bladder of 20 cc of concentrated urine. A sponge stick was placed in the vagina for uterine manipulation to be used during laparoscopic portion of the case. Meat Apprentice's gloves were changed. Attention was then turned to the patient's abdomen where a small amount of 0.25% Marcaine was injected infraumbilically. An infraumbilical incision was made with a scalpel. A Veress needle was introduced into the abdominal cavity. Intra-abdominal placement was confirmed with saline. The Veress needle was then connected to the CO2 gas tubing and insufflation was begun. When adequate insufflation was achieved, the Veress needle was removed and a 5 mm Optiview trocar was introduced under direct visualization using the laparoscope. The trocar was removed and the laparoscope was reintroduced into the abdomen. The patient was placed in steep Trendelenburg position. A generalized pelvic survey was attempted, however, visualization was limited and decision was made to proceed with placement of an accessory port. A small amount of 0.25% Marcaine was injected in the left lower quadrant. A scalpel was used to make a 5 mm incision and a 5 mm port was introduced in the left lower quadrant. With the use of atraumatic graspers, the bowel was gently swept cephalad which allowed adequate visualization of the pelvic organs. An extensive survey was performed. Adhesions were noted from the anterior surface of the uterus to the anterior pelvic wall. Otherwise, the uterus, ovaries, and fallopian tubes bilaterally appeared grossly normal. Although they appeared grossly normal, the left ovary and fallopian tube seemed to be wrapped around the left pelvic sidewall a little more taut than the right side. Bilateral ureters were visualized. Decision was made to place a second accessory port. A small amount of 0.25% Marcaine was injected in the right lower quadrant. A scalpel was used to make a 5 mm incision and an additional 5 mm port was introduced in the right lower quadrant. A 5 mm LigaSure device was introduced into the abdominal cavity. With the use of the LigaSure, the adhesions along the anterior surface of the uterus were transected releasing the uterus a fair amount. Decision was made to perform a left salpingo- oophorectomy. The left infundibulopelvic ligament was identified and transected with the LigaSure device. The mesosalpinx inferior to the fallopian tube was then cauterized and transected in serial bites to the level of the uterus. The tube was then transected at the level of the uterus, completely excising the left fallopian tube and left ovary. No bleeding was noted. The right accessory port was removed under direct visualization and a 5 mm Endo-Catch bag was then introduced through the same incision. The Endo-Catch bag was deployed and the left ovary and fallopian tube was placed inside of the Endo-Catch bag and subsequently removed. A generalize
[2021-12-26] MEDS: fentaNYL CITRATE INJ (*CRX) 100 MCG/2 ML VIAL 25 MCG IV PUSH ×8 (12:56→14:26)
[2021-12-26] MEDS: oxyCODONE HCL (*CRX) 5 MG TAB IR PO (13:44)
[2021-12-26] MEDS: diphenhydrAMINE HCl INJ 50 MG/ML VIAL 12.5 MG IV PUSH (14:25)
== END 2021-12-26 14:55 | disposition home or self-care (01) ==
PROVIDERS: Visit Provider Student in an Organized Health Care Education/Training Program
PROC: (CPT 49320; principal; 2021-12-26 11:30)
DX: R10.2 Pelvic and perineal pain (principal); N73.6 Female pelvic peritoneal adhesions (postinfective); N83.202 Unspecified ovarian cyst, left side; F12.90 Cannabis use, unspecified, uncomplicated
CPT/HCPCS: 58661; 88305; A9270; J1100; J1200; J1885; J2250; J2405; J2704; J2710; J3010; J7030; J7120

== ENCOUNTER 2021-12-27 09:31 | Observation (INO) | payer OTHER, SELFPAY ==
[2021-12-27] VITALS (14 sets, daily range): BP systolic 118–144; BP diastolic 79–98; PULSE 66–120; RESP 10–43; TEMP 36.4–36.5; O2SAT 99–100; BMI 22.3
--- NOTE | ~2021-12-27 | CT_ITS ---
EXAMINATION: CT abdomen pelvis w con DATE: 12/27/2021 11:47 INDICATION: Low abdominal pain following ovarian cyst removal yesterday TECHNIQUE: Computed tomography (CT) of the abdomen and pelvis was performed with 100 CC Omnipaque 300 intravenous contrast. Automated exposure control and iterative reconstruction technique were employe d. Exam dose: 849.04 mGy-cm total exam DLP. COMPARISON: 09/30/2021 CT abdomen pelvis 12/02/2021 pelvic ultrasound FINDINGS: The lung bases are clear of infiltrate or consolidation. Normal heart size. No pericardial or pleural effusion. There is moderate intraperitoneal free air, possibly postoperative. There is diffuse small bowel distention with air-fluid levels. There is a prominent amount of fecal m aterial in the right colon. There is mild free fluid in the adnexal areas and dependent lower pelvis, right greater than left. An IUD is noted within the uterus in expected position. The liver, gallbladder, bile ducts, pancreas, pancreatic duct, spleen and kidneys are unremarkable. N o hydronephrosis. The urinary bladder is unremarkable. Normal caliber of the abdominal aorta. No intraperitoneal or retroperitoneal or pelvic mass lesion or adenopathy is detected. Transitional first sacral vertebra is noted. IMPRESSION: Diffuse fluid distended small bowel, possibly due to postoperative adynamic ileus Moderate intraperitoneal free air, possibly postoperative; less likely would be ruptured hollow intra -abdominal viscus. Mild to moderate free fluid in the adnexal areas of dependent lower pelvis, right greater than left, possibly postoperative Reviewed, dictated and finalized at [facility]. Reviewed, dictated and finalized at location [facility]. IMPRESSION: Diffuse fluid distended small bowel, possibly due to postoperative adynamic ileus Moderate intraperitoneal free air, possibly postoperative; less likely would be ruptured hollow intra-abdominal viscus. Mild to moderate free fluid in the adnexal areas of dependent lower pelvis, rig ht greater than left, possibly postoperative
[2021-12-27 09:50] LABS: Basophils Absolute Auto 0.1 K/mm3 (0.0-0.1); Basophils Percent Auto 0.3 % (0.2-1.2); Eosinophils Absolute Auto 0.1 K/mm3 (0-0.3); Eosinophils Percent Auto 0.3 % (0-4.4); Hematocrit 44.6 % (37.0-47.0); Hemoglobin 14.8 g/dL (12.0-15.0); Immature Granulocyte Absolute 0.05 K/mm3 (0.00-0.031); Immature Granulocyte Percent A 0.3 % (0-0.5); Lymphocytes Absolute Auto 1.72 K/mm3 (0.9-3.2); Lymphocytes Percent Auto 11.4 % (18.3-44.2); Mean Corpuscular HGB Conc 33.2 g/dl (32-36); Mean Corpuscular Hemoglobin 30.7 pg (26-34); Mean Corpuscular Volume 92.5 fl (80-100); Mean Platelet Volume 11.2 fl (7.4-10.4); Monocytes Absolute Auto 0.9 K/mm3 (0.1-0.6); Monocytes Percent Auto 5.7 % (2.6-8.5); Neutrophils Absolute Auto 12.3 K/mm3 (1.3-6.7); Platelet Count Result 267 k/mm3 (150-375); Red Blood Count 4.82 M/mm3 (4.2-5.4); Red Cell Distribution Width 12.8 % (11.5-14.5)
[2021-12-27] MEDS: ONDANSETRON INJ 4 MG/2 ML VIAL IV PUSH ×4 (09:53→19:46)
[2021-12-27] MEDS: HYDROmorphone HCL INJ (*CRX) 1 MG/ML SYR IV PUSH (09:54)
[2021-12-27] MEDS: SODIUM CHLORIDE 0.9% IV 1,000 ML 999 ML IV CONT ×2 (09:54→11:20)
[2021-12-27 10:00] LABS: Lactic Acid Reflex 3.4 mmol/L (0.7-2.0)
[2021-12-27 10:03] LABS: INR 1.2; Partial Thromboplastin Time 22.6 SECONDS (22.3-36.8); Prothrombin Time 14.7 Seconds (11.1-14.7)
--- NOTE | 2021-12-27 10:49 | PC.NURSE ---
Pt difficult stick for Labs. Multiple attempts made by staff. Will notify Lab for drawl.
[2021-12-27 11:12] LABS: Alanine Aminotransferase 13 U/L (6-35); Albumin Level 4.5 g/dL (3.5-5.1); Alkaline Phosphatase 78 U/L (38-126); Anion Gap 10 mmol/L (8-16); Aspartate Amino Transferase 24 U/L (14-36); Bilirubin,Total 1.2 mg/dL (0.2-1.3); Blood Urea Nitrogen 8 mg/dL (7-17); Calcium 8.9 mg/dL (8.4-10.2); Carbon Dioxide 24 mmol/L (22-30); Chloride 106 mmol/L (98-107); Estimated Glomerular Filt Rate > 60; Glucose 119 mg/dL (65-110); Potassium 3.7 mmol/L (3.4-5.0); Sodium 140 mmol/L (137-145)
[2021-12-27] MEDS: HYDROmorphone HCL INJ (*CRX) 1 MG/ML SYR 0.5 MG IV PUSH ×2 (11:19→13:22)
--- NOTE | 2021-12-27 11:26 | PC.NURSE ---
Pt unable to void at this time.
--- NOTE | 2021-12-27 11:59 | ED.GENADULT ---
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 Patient states that she had the surgical procedure yesterday and was feeling fine after the procedure but then around midnight began developing generalized abdominal pain. Patient denies any vaginal bleeding. Patient does have associated nausea and vomiting. Related Data Home Medications Medication Instructions Recorded Confirmed bupropion HCl 150 mg 24 hr tablet, 150 mg PO DAILY 06/29/21 12/26/21 extended release bupropion HCl 300 mg 24 hr tablet, 300 mg PO DAILY 06/29/21 12/26/21 extended release buspirone 15 mg tablet 15 mg PO TID 06/29/21 12/26/21 hydroxyzine HCl 50 mg tablet 50 mg PO TID PRN Anxiety 06/29/21 12/26/21 lamotrigine 100 mg tablet 100 mg PO BID 06/29/21 12/26/21 quetiapine 200 mg tablet,extended 200 mg PO HS 06/29/21 12/26/21 release 24 hr levonorgestrel 20 mcg/24 hours (7 1 device intrauterine ONCE 11/20/21 12/22/21 yrs) 52 mg intrauterine device (Mirena) Allergies Allergy/AdvReac Type Severity Reaction Status Date / Time artichoke Allergy Severe Anaphylaxis Verified 12/22/21 15:44 Review of Systems Review of Systems: CONSTITUTIONAL: Denies fever, chills, or sweats. EYES: Denies visual changes, redness, or discharge. ENT: Denies rhinorrhea, congestion, sore throat, or otalgia. CARDIOVASCULAR: Denies chest pain, palpitations, or edema. RESPIRATORY: Denies cough or dyspnea. GASTROINTESTINAL: See HPI GENITOURINARY: Denies dysuria or hematuria. SKIN: Denies rash or itching. MUSCULOSKELETAL: Denies back pain, joint pain, or myalgia. NEUROLOGIC: Denies headache, numbness, or weakness. [facility] Past Medical History Medical History (Updated 12/27/21 @ 16:16 by Jolanta Lake MD) Miscarriage Twin Vaginal bleeding during Surgical History Surgical History (Updated 12/27/21 @ 16:13 by Jolanta Lake MD) History of left salpingo-oophorectomy Previous section x2 Family History Family History Father Myocardial infarct Other CAD (coronary artery disease) Social History Social History Smoking status: Never smoker Alcohol intake: unknown Substance use: never Substance use type: marijuana Gender identity (if verbalized by the patient): Female Spiritual care concerns: No Exam Narrative: APPEARANCE: Well appearing, no pain, no distress, well-nourished. HEAD: normocephalic, atraumatic. EYES: PERRLA/EOMI, conjunctivae clear. NOSE: Normal no drainage NECK: Supple. No adenopathy, no masses. RESPIRATORY: Airway patent, respirations nonlabored. Clear to auscultation bilaterally, no rales, rhonchi, wheezing. CARDIOVASCULAR: Regular rate and rhythm without murmurs rubs or gallops. ABDOMINAL: Soft, mild lower abdominal tenderness to palpation. Trocar sites are well-appearing. Decreased bowel sounds MUSCULOSKELETAL: Moves all extremities. Strength/ROM intact, No edema, No calf tenderness. NEURO: Alert. Cranial nerves II through XII intact. Grossly intact SKIN: Warm, dry. Normal Color Course Course Emergency Course: Case was discussed with EDITOR DICTIONARY and patient was admitted for observation due to her adynamic ileus. Vital Signs Vital signs: Vital Signs Temperature 97.7 F 12/27/21 09:34 Pulse Rate 97 12/27/21 09:34 Respiratory Rate 18 12/27/21 09:34 Blood Pressure 141/98 H 12/27/21 09:34 Pulse Oximetry 99 12/27/21 09:34 Oxygen Delivery Room Air 12/27/21 09:34 Temperature 97.5 F L 12/27/21 14:12 Pulse Rate 66 12/27/21 14:12 Respiratory Rate 22 H 12/27/21 14:12 Blood Pressure 144/98 H 12/27/21
[2021-12-27 12:48] LABS: Reflex Lactic Acid Yes or No Add Lactic
--- NOTE | 2021-12-27 14:04 | PC.NURSE ---
This patient, Suni Mcdaniel, was admitted to Medical Room 251-01. Patient/family oriented to hospital policies and general routines including ID bracelet, bed and alarms, visiting hours, pain management, procedures, bathroom and other care routines, personal items, smoking policy, room service/diet, and visiting hours. Information on how to activate the Rapid Response Team has been discussed. Patient/Family are encouraged to report perceived risks to care and to ask questions if they do not understand what they are told or what they should do.
[2021-12-27 14:05] LABS: Appearance Urine Clear (Clear); Bilirubin Urine Negative (Negative); Blood Urine Negative (Negative); Color Urine Yellow (Yellow); Glucose Urine UA Negative (Negative); Ketones Urine Negative (Negative); Leukocyte Esterase Ur Negative LEU/UL (Negative); Nitrate Urine Negative (Negative); Protein Urine Negative (Negative)
[2021-12-27 14:10] LABS: Bacteria Urine Trace /hpf; Mucus Urine Few /lpf; Squamous Epithelial Cell Urine Moderate /hpf (Few); WBC Urine 0-3 /hpf
[2021-12-27 14:11] LABS: Add Urine Microscopic? YES
[2021-12-27] MEDS: SODIUM CHLORIDE 0.9% IV 1,000 ML 125 ML IV CONT (14:24)
[2021-12-27 15:00] LABS: Lactic Acid 2.4 mmol/L (0.7-2.0)
[2021-12-27] MEDS: METOCLOPRAMIDE HCL INJ 10 MG/2 ML VIAL IV PUSH ×2 (15:05→22:02)
[2021-12-27] MEDS: KCL 20 MEQ/D5/0.45% SOD CHL 1,000 ML 125 ML IV CONT (15:08)
--- NOTE | 2021-12-27 16:06 | PM.IMHP ---
H&P: HPI History of Present Illness Date/Time: 12/27/21 16:06 Chief Complaint: Nausea and vomiting Narrative: Patient is a 26-year-old currently POD#1 s/p laparoscopic left salpingo-oophorectomy. Procedure was uncomplicated. Patient was discharged home from outpatient surgery in stable condition. Patient reported feeling reasonably well upon arrival at home. Patient states that she fell asleep and woke up approximately 7:00 p.m. last night. When she woke up, patient reported feeling nauseous. Nausea was manageable until approximately midnight at which time she began vomiting. Patient has experienced several episodes of vomiting since then and presented to ED for further evaluation. She did eat spaghetti last night for dinner. Reports abdominal pain that is mostly associated with emesis. No flatus or BM. Review of Systems Review of Systems: All systems reviewed & are unremarkable except as noted in HPI and below Constitutional: Constitutional: Reports as per HPI and Reports no additional constitutional complaints Gastrointestinal: Gastrointestinal: Reports as per HPI, Reports no additional gastrointestinal complaints, Reports abdominal pain, Reports nausea and Reports vomiting [facility] Past Medical History Medical History (Updated 12/27/21 @ 16:16 by Jolanta Lake MD) Miscarriage Twin Vaginal bleeding during Surgical History Surgical History (Updated 12/27/21 @ 16:13 by Jolanta Lake MD) History of left salpingo-oophorectomy Previous section x2 Family History Family History Father Myocardial infarct Other CAD (coronary artery disease) Social History Social History Smoking status: Never smoker Alcohol intake: unknown Substance use: never Substance use type: marijuana Gender identity (if verbalized by the patient): Female Spiritual care concerns: No Meds Home Medications and Allergies Home Medications Medication Instructions Recorded Confirmed Type bupropion HCl 150 mg 24 hr tablet, 150 mg PO DAILY 06/29/21 12/26/21 History extended release bupropion HCl 300 mg 24 hr tablet, 300 mg PO DAILY 06/29/21 12/26/21 History extended release buspirone 15 mg tablet 15 mg PO TID 06/29/21 12/26/21 History hydroxyzine HCl 50 mg tablet 50 mg PO TID PRN Anxiety 06/29/21 12/26/21 History lamotrigine 100 mg tablet 100 mg PO BID 06/29/21 12/26/21 History quetiapine 200 mg tablet,extended 200 mg PO HS 06/29/21 12/26/21 History release 24 hr levonorgestrel 20 mcg/24 hours (7 1 device intrauterine ONCE 11/20/21 12/22/21 History yrs) 52 mg intrauterine device (Mirena) ondansetron 4 mg disintegrating 4 mg PO Q6H PRN nausea and 11/21/21 12/26/21 Rx tablet vomiting #30 tabs hydrocodone 5 mg-acetaminophen 325 1 - 2 tablet PO Q4-6H PRN pain #20 12/26/21 Rx mg tablet tabs Allergies Allergy/AdvReac Type Severity Reaction Status Date / Time artichoke Allergy Severe Anaphylaxis Verified 12/22/21 15:44 Vital Signs Vital Signs - 24 hr 12/27/21 09:34 12/27/21 13:25 12/27/21 09:55 Temperature 36.5 C Pulse Rate 97 94 89 Respiratory Rate 18 20 41 H Blood Pressure 141/98 H 121/94 H Pulse Oximetry 99 100 100 Oxygen Delivery Room Air 12/27/21 10:01 12/27/21 10:16 12/27/21 11:16 Temperature Pulse Rate 83 88 88 Respiratory Rate 43 H 15 20 Blood Pressure 119/87 122/83 137/93 H Pulse Oximetry 100 100 100 Oxygen Delivery 12/27/21 11:50 12/27/21 11:51 12/27/21 12:01 Temperature Pulse Rate 83 84 86 Respiratory Rate 23 H 21 H 14 Blood Pressure 118/79 123/88 Pulse Oximetry 100 100 100 Oxygen Delivery 12/27/21 12:31 12/27/21 13:30 12/27/21 13:45 Temperature Pulse Rate 120 H 85 107 H Respiratory Rate 37 H 10 L 23 H Blood Pressure 123/84 Pulse Oximetry 100 100 100 Oxygen Delivery 12/27/21 14:12 [facility]
[2021-12-27] MEDS: MORPHINE SULFATE (*CRX) 4 MG/ML INJ IV PUSH ×2 (16:35→20:30)
[2021-12-28] MEDS: KCL 20 MEQ/D5/0.45% SOD CHL 1,000 ML 125 ML IV CONT ×2 (01:45→08:07)
[2021-12-28] MEDS: METOCLOPRAMIDE HCL INJ 10 MG/2 ML VIAL IV PUSH ×2 (05:42→14:20)
[2021-12-28] MEDS: KETOROLAC 15 MG/ML VIAL (*BKC) IV PUSH (05:43)
[2021-12-28 05:45] VITALS: BP 123/78; PULSE 73; RESP 21; TEMP 36.2; O2SAT 100
[2021-12-28] MEDS: MORPHINE SULFATE (*CRX) 4 MG/ML INJ IV PUSH (08:08)
--- NOTE | 2021-12-28 11:49 | PM.GYNPNOP ---
CAUL DRESSER - A/P Assessment and plan (1) Postoperative ileus: Code(s): K91.89 - Other postprocedural complications and disorders of digestive system; K56.7 - Ileus, unspecified Status: Acute Assessment and Plan: POD#2 ileus appears to be resolving advance diet as tolerated starting with clears pain medication PRN if tolerates diet, plan is to dc later today Time Spent With Patient Time: Total time spent is greater than 50% in coordination of care (as documented) at patient's floor/unit and/or counseling patient: Time with patient: less than 15 minutes CAUL DRESSER- PN:Subj Post-Op Subjective Date/time seen: 12/28/21 11:49 Patient reports feeling significantly better this AM. Denies any further nausea or vomiting. Still reports mild abdominal pain that is reasonably controlled with medication. Ambulating and voiding without difficulty. Reports passage of flatus. Patient stating she is hungry. Review of Systems Review of Systems: All systems reviewed & are unremarkable except as noted in HPI and below Exam Const: General: cooperative, comfortable and no acute distress GI: Inspection: non-distended GI Palp: Yes Soft to palpation and No Tenderness to palpation present (GI) Auscultation: normal bowel sounds Other: inc sites c/d/i CAUL DRESSER - PN: Obj Data Vital Signs Vital Signs: Vital Signs - 24 hr 12/27/21 13:25 12/27/21 11:50 12/27/21 11:51 Temperature Pulse Rate 94 83 84 Respiratory Rate 20 23 H 21 H Blood Pressure 118/79 Pulse Oximetry 100 100 100 Oxygen Delivery 12/27/21 12:01 12/27/21 12:31 12/27/21 13:30 Temperature Pulse Rate 86 120 H 85 Respiratory Rate 14 37 H 10 L Blood Pressure 123/88 123/84 Pulse Oximetry 100 100 100 Oxygen Delivery 12/27/21 13:45 12/27/21 14:12 12/27/21 19:56 Temperature 36.4 C L Pulse Rate 107 H 66 Respiratory Rate 23 H 22 H Blood Pressure 144/98 H Pulse Oximetry 100 100 Oxygen Delivery Room Air 12/27/21 21:20 12/28/21 05:45 Temperature 36.5 C 36.2 C L Pulse Rate 72 73 Respiratory Rate 21 H 21 H Blood Pressure 121/79 123/78 Pulse Oximetry 100 100 Oxygen Delivery Intake/Output Intake/Output: Intake & Output 12/25/21 12/26/21 12/27/21 12/28/21 23:59 23:59 23:59 23:59 Intake Total 3000 1000 Output Total 800 Balance 3000 200 Meds/Results Medications: Active Medications Generic Name Dose Route Start Last Admin Trade Name Freq PRN Reason Stop Dose Admin Potassium Chloride/Dextrose/Sod Cl 1,000 mls @ 125 mls/hr 12/27/21 15:30 12/28/21 08:07 Kcl 20 Meq/D5/0.45% Sod Chl IV CONT 125 mls/hr .Q8H KYLAH Administration Ketorolac Tromethamine 15 mg 12/27/21 21:26 12/28/21 05:43 Ketorolac 15 Mg/Ml Vial (*Bkc) IV PUSH 15 mg Q6H PRN Administration Pain Rated 4-6 Metoclopramide HCl 10 mg 12/27/21 15:00 12/28/21 05:42 Metoclopramide Hcl Inj 10 Mg/2 Ml Vial IV PUSH 10 mg Q8HR KYLAH Administration Morphine Sulfate 4 mg 12/27/21 15:59 12/28/21 08:08 Morphine Sulfate (*Crx) 4 Mg/Ml Inj IV PUSH 4 mg Q3H PRN Administration Pain Rated 7-10 Ondansetron HCl 4 mg 12/27/21 12:38 12/27/21 19:46 Ondansetron Inj 4 Mg/2 Ml Vial IV PUSH 4 mg Q4H PRN Administration Nausea Radiology Results: ITS Impressions Abdomen/Pelvis CT 12/27/21 11:59 IMPRESSION: Diffuse fluid distended small bowel, possibly due to postoperative adynamic ileus Moderate intraperitoneal free air, possibly postoperative; less likely would be ruptured hollow intra-abdominal viscus. Mild to moderate free fluid in the adnexal areas of dependent lower pelvis, right greater than left, possibly postoperative Labs CBC & Chem 7: 12/27/21 09:44 12/27/21 10:58 Labs: Laboratory Results - last 24 hr 12/27/21 12/27/21 12/27/21 10:58 13:59 14:34 Lactic Acid 2.4 H Urine Color Yellow Urine Appearance Clear Urine pH 6.0 Ur Specific [place] 1.0
[2021-12-28 14:00] VITALS: BP 126/93; PULSE 84; RESP 14; TEMP 36.9; O2SAT 100
[2021-12-28] MEDS: DOCUSATE SODIUM 100 MG CAPSULE PO (14:30)
--- NOTE | 2021-12-28 17:24 | P.PNOB_ITS ---
E LEARNING DESIGNER - A/P Time Spent With Patient Time: Total time spent is greater than 50% in coordination of care (as documented) at patient's floor/unit and/or counseling patient: Time with patient: less than 15 minutes E LEARNING DESIGNER- PN:Leatha Post-Op Subjective Date/time seen: 12/28/21 17:24 Spoke with RN. Patient doing well. Tolerated regular PO diet for dinner. No further nausea or vomiting. Only reports mild gas discomfort. Simethicone ordered. VSS. Will discharge pt home in stable condition. E LEARNING DESIGNER - PN: Obj Data Vital Signs Vital Signs: Vital Signs - 24 hr 12/27/21 19:56 12/27/21 21:20 12/28/21 05:45 Temperature 36.5 C 36.2 C L Pulse Rate 72 73 Respiratory Rate 21 H 21 H Blood Pressure 121/79 123/78 Pulse Oximetry 100 100 Oxygen Delivery Room Air 12/28/21 08:00 12/28/21 14:00 Temperature 36.9 C Pulse Rate 84 Respiratory Rate 14 Blood Pressure 126/93 H Pulse Oximetry 100 Oxygen Delivery Room Air Intake/Output Intake/Output: Intake & Output 12/25/21 12/26/21 12/27/21 12/28/21 23:59 23:59 23:59 23:59 Intake Total 3000 2260 Output Total 800 Balance 3000 1460 Meds/Results Medications: Active Medications Generic Name Dose Route Start Last Admin Trade Name Freq PRN Reason Stop Dose Admin Acetaminophen 1,000 mg 12/28/21 12:00 Acetaminophen 500 Mg Tablet PO Q6H PRN Mild Pain (1-3) or Fever Docusate Sodium 100 mg 12/28/21 14:15 12/28/21 14:30 Docusate Sodium 100 Mg Capsule PO 100 mg BID PRN Administration Constipation Potassium Chloride/Dextrose/Sod Cl 1,000 mls @ 125 mls/hr 12/27/21 15:30 12/28/21 17:03 Kcl 20 Meq/D5/0.45% Sod Chl IV CONT Not Given .Q8H KYLAH Ibuprofen 600 mg 12/28/21 12:01 Ibuprofen 600 Mg Tablet PO Q6H PRN Pain 1-3 ALTERNATING WITH TYL Metoclopramide HCl 10 mg 12/27/21 15:00 12/28/21 14:20 Metoclopramide Hcl Inj 10 Mg/2 Ml Vial IV PUSH 10 mg Q8HR KYLAH Administration Ondansetron HCl 4 mg 12/27/21 12:38 12/27/21 19:46 Ondansetron Inj 4 Mg/2 Ml Vial IV PUSH 4 mg Q4H PRN Administration Nausea Radiology Results: ITS Impressions Abdomen/Pelvis CT 12/27/21 11:59 IMPRESSION: Diffuse fluid distended small bowel, possibly due to postoperative adynamic ileus Moderate intraperitoneal free air, possibly postoperative; less likely would be ruptured hollow intra-abdominal viscus. Mild to moderate free fluid in the adnexal areas of dependent lower pelvis, right greater than left, possibly postoperative Labs CBC & Chem 7: 12/27/21 09:44 12/27/21 10:58
--- NOTE | 2021-12-28 17:26 | PM.DS ---
DS: Admitting Diagnosis Discharge Date 12/28/21 Admitting Diagnosis Postoperative ileus DS: Summary Hospital Course Hospital Course: Patient was admitted in observation status overnight. Bowel function slowly returned. Patient is passing flatus and tolerating PO diet without nausea or vomiting. Discharged home in stable condition. Time Spent with Patient Time attestation: Total time spent providing and/or coordinating discharge services: Discharge Plan Discharge Attending physician on discharge: Jolanta Lake Discharging Clinician: Jolanta Lake Anticipated Discharge Date/Time: 12/28/21 17:26 Patient Disposition: Home, Self-Care Activity: as tolerated Diet: regular Discharge Instructions: Call office [phone] to schedule postoperative visit in 2 weeks. You may take Ibuprofen 600mg every 6 hours as needed for pain. You may also alternate Ibuprofen with Tylenol 1000mg (two extra strength tablets) every 6 hours. You have a prescription at home for [place], which is a narcotic. This medication also contains Tylenol, so do not take both [place] and additional Tylenol. Pain medication may make you constipated. It may be helpful to take an [id number] stool softener, such as Colace and/or Senokot, along with the pain medication to help lessen constipation. You may also take Simethicone for gas discomfort. Call office or go to Emergency Department for severe headache, chest pain, shortness of breath, nausea, vomiting, or heavy vaginal bleeding. Patient Instructions: Antibiotic Form Stand Alone Forms: General Discharge Information Follow-up/Referrals: Jolanta Lake MD [Physician] - Discharge Medications: Continued hydroxyzine HCl 50 mg tablet 50 mg PO TID PRN (Reason: Anxiety) lamotrigine 100 mg tablet 100 mg PO BID buspirone 15 mg tablet 15 mg PO TID bupropion HCl 300 mg tablet extended release 24 hr 300 mg PO DAILY bupropion HCl 150 mg tablet extended release 24 hr 150 mg PO DAILY quetiapine 200 mg tablet extended release 24 hr 200 mg PO HS Mirena 20 mcg/24 hours (7 yrs) 52 mg intrauterine device 1 device intrauterine ONCE Rx Instructions: as a single dose ondansetron 4 mg tablet,disintegrating 4 mg PO Q6H PRN (Reason: nausea and vomiting) Qty: 30 0RF hydrocodone-acetaminophen 5-325 mg tablet 1 - 2 tablet PO Q4-6H PRN (Reason: pain) Qty: 20 0RF Date of admission: 12/27/21 12:39 Primary Care Provider: PHYSICIAN,SHEET MET[employer] WORKER MAINTENANCE Admitting Provider: Jolanta Lake Attending physician on admission: Jolanta Lake Condition: Stable
[2021-12-28] MEDS: IBUPROFEN 600 MG TABLET PO (17:30)
[2021-12-28] MEDS: SIMETHICONE 80 MG TAB.CHEW PO (18:08)
== END 2021-12-28 18:40 | disposition home or self-care (01) ==
LOC: ANHED 12:38 → ANH2MED 12:57
PROVIDERS: Admitting Provider Student in an Organized Health Care Education/Training Program; Emergency Provider Emergency Medicine; Visit Provider Student in an Organized Health Care Education/Training Program
DX: K91.89 Other postprocedural complications and disorders of digestive system (principal); K56.0 Paralytic ileus; G89.18 Other acute postprocedural pain; Z90.721 Acquired absence of ovaries, unilateral; R10.30 Lower abdominal pain, unspecified; F12.90 Cannabis use, unspecified, uncomplicated; Z97.5 Presence of (intrauterine) contraceptive device; Z79.1 Long term (current) use of non-steroidal anti-inflammatories (NSAID); Z79.899 Other long term (current) drug therapy
CPT/HCPCS: 36415; 74177; 80053; 81001; 83605; 85025; 85610; 85730; 86850; 86900; 86901; 96361; 96365; 96366; 96374; 96375; 96376; 99285; A9270; G0378; G0379; J1170; J1885; J2270; J2405; J2765; J3480; J7030; Q9967

== ENCOUNTER 2022-04-20 13:58 | Emergency (ER) | payer OTHER, SELFPAY ==
--- NOTE | 2022-04-20 14:03 | ED.URI ---
HPI - URI/Sore Throat General Chief Complaint: Upper Respiratory Infection Stated Complaint: Cough,Pressure In Head/Chest Time Seen by Provider: 04/20/22 14:05 Source: patient, RN notes reviewed and old records reviewed Mode of arrival: ambulatory Limitations: no limitations History of Present Illness HPI Narrative: 26-year-old female presents to the [facility] with complaints of sinus congestion, sore throat for 2 weeks. Had been taking DayQuil and NyQuil with no relief. MD elicited complaint: rhinorrhea and nasal congestion Related Data Allergies Allergy/AdvReac Type Severity Reaction Status Date / Time artichoke Allergy Severe Anaphylaxis Verified 01/15/22 15:49 Review of Systems Review of Systems: All systems reviewed & are unremarkable except as noted in HPI and below Constitutional: Constitutional: Reports no additional constitutional complaints, Denies chills and Denies fever(s) Eyes: Eyes: Reports no additional eye complaints ENT: Reports as per HPI, Reports nasal congestion and Reports sore throat Cardiovascular: Cardiovascular: Reports no additional cardiovascular complaints Respiratory: Respiratory: Reports no additional respiratory complaints Gastrointestinal: Gastrointestinal: Reports no additional gastrointestinal complaints Musculoskeletal: Musculoskeletal: Reports no additional musculoskeletal complaints Integumentary/Breasts: Skin/Breast: Reports system reviewed and no additional complaints, except as docu Neurologic: Reports system reviewed and no additional complaints, except as documented Psychiatric: Psychiatric: Reports no additional psychiatric complaints Allergic/Immunologic: Allergic/Immunologic: Reports no additional allergic/immunologic complaints PMF Past Medical History Medical History Miscarriage Twin Vaginal bleeding during Surgical History Surgical History History of left salpingo-oophorectomy Previous section x2 Family History Family History Father Myocardial infarct Other CAD (coronary artery disease) Social History Social History Smoking status: Never smoker Alcohol intake: unknown Substance use: never Substance use type: marijuana Gender identity (if verbalized by the patient): Female Spiritual care concerns: No Comments At the time of my signature, I reviewed and agree with the nursing past medical, surgical, social, and family history. There is no relevant family history pertinent to the patient complaint. Exam Const: General: comfortable, no acute distress, well developed, alert, ill appearing acutely (mild) and well nourished Nutritional Appearance: well nourished Orientation/consciousness: patient oriented x3 Limitations: no limitations HENMT: Head: normal to inspection Ears: external ears normal, TM's normal bilaterally and EAC's normal Face/Nose/Sinus: Normal external nose present and Nasal discharge present clear Face and sinus: normal facial exam and sinus tenderness frontal and maxillary Mouth: Yes Normal oral and palatal mucosa present, Yes lip normal and Yes moist mucous membranes Throat: posterior oropharynx normal and uvula midline Eyes: General: appearance normal, both eyes and all related structures Conjunctivae: conjunctivae normal Pupils: Equal, round and reactive pupils present Neck: Neck: normal visual inspection, full ROM, no lymphadenopathy and no meningeal signs Chest: Chest palpation & inspection: normal inspection of the chest Resp: Effort & Inspection: normal respiratory effort and no use of accessory muscles Auscultation: clear to auscultation bilaterally, no crackles, no rales, no rhonchi and no wheezes Cardio: Rate: regular rate Rhythm: regular rhythm Back/Spine
[2022-04-20 14:07] VITALS: BP 114/81; PULSE 105; RESP 18; TEMP 37.3; O2SAT 100
== END 2022-04-20 14:20 | disposition home or self-care (01) ==
PROVIDERS: Emergency Provider Nurse Practitioner
DX: J32.9 Chronic sinusitis, unspecified (principal)
CPT/HCPCS: 99213; G0463

== ENCOUNTER 2022-06-13 14:49 | Emergency (ER) | payer OTHER, SELFPAY ==
[2022-06-13 16:14] VITALS: BP 111/86; PULSE 127; RESP 20; TEMP 39.3; O2SAT 99
--- NOTE | 2022-06-13 16:48 | ED.GENADULT ---
HPI - General Adult General Chief complaint: Upper Respiratory Infection Stated complaint: uri Time Seen by Provider: 06/13/22 16:48 Source: patient Mode of arrival: ambulatory Limitations: no limitations History of Present Illness HPI narrative: 26-year-old female patient presents to the [facility] with complaints of cold symptoms for the past 4 days. Patient states she has had fevers, body aches, chills, congestion and slight cough. Denies any chest pain or shortness of breath. Patient states she has been taking some [id number] medicine but nothing consistent. Denies taking any Tylenol prior to arrival today. Related Data Allergies Allergy/AdvReac Type Severity Reaction Status Date / Time artichoke Allergy Severe Anaphylaxis Verified 01/15/22 15:49 Review of Systems Review of Systems: CONSTITUTIONAL: Positive fever, body aches and chills, or sweats. EYES: Denies visual changes, redness, or discharge. ENT: Positive rhinorrhea, congestion, denies sore throat, or otalgia. CARDIOVASCULAR: Denies chest pain, palpitations, or edema. RESPIRATORY: Positive cough denies dyspnea. GASTROINTESTINAL: Denies abdominal pain, nausea, vomiting, or diarrhea. GENITOURINARY: Denies dysuria or hematuria. SKIN: Denies rash or itching. MUSCULOSKELETAL: Denies back pain, joint pain, or myalgia. NEUROLOGIC: Denies headache, numbness, or weakness. PSYCHIATRIC: Denies anxiety or depression. [facility] Past Medical History Medical History Miscarriage Twin Vaginal bleeding during Surgical History Surgical History History of left salpingo-oophorectomy Previous section x2 Family History Family History Father Myocardial infarct Other CAD (coronary artery disease) Social History Social History Smoking status: Never smoker Alcohol intake: unknown Substance use: never Substance use type: marijuana Gender identity (if verbalized by the patient): Female Spiritual care concerns: No Comments At the time of my signature I agree with nursing past medical history, surgical, social, and family history. There is no relevant family history pertinent to the presenting complaint. Exam Narrative: GENERAL: ill-appearing, well-nourished, and in no acute distress. HEAD: Normocephalic, atraumatic. EYES: PERRLA and EOMI. ENT: Nares with erythema and edema noted bilaterally, no rhinorrhea or epistaxis. Mucous membranes moist. Posterior pharynx with no erythema, tonsillar joint, exudates or lesions present. Bilateral TMs are clear no erythema or foreign bodies the canal. NECK: Supple. No lymphadenopathy CHEST: Clear to auscultation. No respiratory distress. HEART: Regular rate and rhythm. No murmur heard. Normal peripheral pulses. ABDOMEN: Soft, nontender, nondistended, normal active bowel sounds. EXTREMITIES: Normal range of motion. No edema. SKIN: Warm, dry, no rash. NEURO: No focal deficits. Alert and oriented x3. Course Course Level of Care: Express Care Visit Vital Signs Vital signs: Vital Signs Temperature 39.3 C H 06/13/22 16:14 Pulse Rate 127 H 06/13/22 16:14 Respiratory Rate 20 06/13/22 16:14 Blood Pressure 111/86 06/13/22 16:14 Pulse Oximetry 99 06/13/22 16:14 Oxygen Delivery Room Air 06/13/22 16:14 Temperature 39.3 C H 06/13/22 16:14 Pulse Rate 127 H 06/13/22 16:14 Respiratory Rate 20 06/13/22 16:14 Blood Pressure 111/86 06/13/22 16:14 Pulse Oximetry 99 06/13/22 16:14 Oxygen Delivery Room Air 06/13/22 16:14 Vital signs reviewed Medical Decision Making MDM Narrative Medical decision making narrative: Discussed with patient that she is positive today for influenza A. Discussed with her that since she is outside of the 72 hour
[2022-06-13 16:56] VITALS: TEMP 39.3
[2022-06-13] MEDS: ACETAMINOPHEN 500 MG TABLET 1000 MG PO (16:56)
== END 2022-06-13 17:00 | disposition home or self-care (01) ==
PROVIDERS: Emergency Provider Nurse Practitioner Family
DX: J10.1 Influenza due to other identified influenza virus with other respiratory manifestations (principal)
CPT/HCPCS: 87804; 99213; A9270; G0463

== ENCOUNTER 2022-07-06 13:58 | Emergency (ER) | payer OTHER, SELFPAY ==
--- NOTE | ~2022-07-06 | US_ITS ---
EXAMINATION: US pelvic complete w TV DATE: 07/06/2022 15:40 INDICATION: Right lower quadrant abdominal pain. TECHNIQUE: Multiple transabdominal and transvaginal sonographic images of the pelvis were obtained. COMPARISON: Ultrasound pelvis 12/02/2021, CT abdomen and pelvis 12/27/2021 FINDINGS: TRANSABDOMINAL ULTRASOUND: The uterus measures 9.5 x 5.1 x 7.5 cm. There is no free fluid in the pelvis. TRANSVAGINAL ULTRASOUND: The endometrial complex measures 5 mm in thickness. There is an intrauterine device in expected posit ion. The right ovary measures 4.6 x 2.4 x 3.2 cm. There is a 2.3 cm hypoechoic mass in right ovary wi thout internal vascular flow. There is normal vascular flow in right ovary. The left ovary is no visu alized and reportedly absent. IMPRESSION: 1. 2.3 cm hypoechoic mass in right ovary, likely a hemorrhagic cyst. 2. Intrauterine device in expected position. 3. Left ovary not visualized and reportedly absent. Reviewed, dictated and finalized at location A. HEALTH THERAPIST
[2022-07-06 14:09] VITALS: BP 135/89; PULSE 96; RESP 16; TEMP 36.8; O2SAT 99
[2022-07-06 14:36] LABS: Add Urine Microscopic? YES; Appearance Urine Slightly Cloudy (Clear); Basophils Percent Auto 0.4 % (0.2-1.2); Bilirubin Urine 1+ (Negative); Blood Urine Negative (Negative); Eosinophils Absolute Auto 0.1 K/mm3 (0-0.3); Eosinophils Percent Auto 1.7 % (0-4.4); Glucose Urine UA Negative (Negative); Hematocrit 42.3 % (37.0-47.0); Hemoglobin 13.6 g/dL (12.0-15.0); Immature Granulocyte Absolute 0.01 K/mm3 (0.00-0.031); Immature Granulocyte Percent A 0.1 % (0-0.5); Ketones Urine Trace mg/dL (Negative); Leukocyte Esterase Ur Negative LEU/UL (Negative); Lymphocytes Absolute Auto 1.71 K/mm3 (0.9-3.2); Lymphocytes Percent Auto 22.8 % (18.3-44.2); Mean Corpuscular HGB Conc 32.2 g/dl (32-36); Mean Corpuscular Hemoglobin 31.1 pg (26-34); Mean Corpuscular Volume 96.8 fl (80-100); Mean Platelet Volume 11.1 fl (7.4-10.4); Monocytes Absolute Auto 0.6 K/mm3 (0.1-0.6); Monocytes Percent Auto 8.3 % (2.6-8.5); Neutrophils Percent Auto 66.7 % (45.5-73.1); Nitrate Urine Negative (Negative); Platelet Count Result 228 k/mm3 (150-375); Protein Urine 1+ mg/dL (Negative); Red Blood Count 4.37 M/mm3 (4.2-5.4); Red Cell Distribution Width 13.1 % (11.5-14.5); Specific Grav Ur >= 1.030 (1.001-1.035); White Blood Count 7.5 K/mm3 (4.5-10.0); pH Urine 5.5 (5.0-9.0)
[2022-07-06 14:39] LABS: Bacteria Urine Trace /hpf; Mucus Urine Few /lpf; RBC Urine 0-2 /hpf (0-2); Squamous Epithelial Cell Urine Many /hpf (Few); WBC Urine 0-3 /hpf
[2022-07-06 14:48] LABS: Alanine Aminotransferase 14 U/L (6-35); Albumin Level 4.3 g/dL (3.5-5.1); Alkaline Phosphatase 64 U/L (38-126); Anion Gap 7 mmol/L (8-16); Aspartate Amino Transferase 22 U/L (14-36); Bilirubin,Total 0.9 mg/dL (0.2-1.3); Blood Urea Nitrogen 10 mg/dL (7-17); Calcium 9.1 mg/dL (8.4-10.2); Carbon Dioxide 27 mmol/L (22-30); Chloride 105 mmol/L (98-107); Estimated CRCL calculation 120 ml/min; Estimated Glomerular Filt Rate > 60; Glucose 93 mg/dL (65-110); Potassium 3.5 mmol/L (3.4-5.0); Sodium 139 mmol/L (137-145)
[2022-07-06 15:00] LABS: Color Urine Amber (Yellow)
[2022-07-06 15:05] LABS: Beta HCG Quantitative < 2.39 mIU/ML
--- NOTE | 2022-07-06 19:11 | ED.ABDPAIN ---
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 Patient states she first noticed some nausea accompanying her pain. It is rated 5/10 and does not radiate. she took a home test that was positive. Related Data Allergies Allergy/AdvReac Type Severity Reaction Status Date / Time artichoke Allergy Severe Anaphylaxis Verified 01/15/22 15:49 Review of Systems Review of Systems: CONSTITUTIONAL: Denies fever, chills, or sweats. EYES: Denies visual changes, redness, or discharge. ENT: Denies rhinorrhea, congestion, sore throat, or otalgia. CARDIOVASCULAR: Denies chest pain, palpitations, or edema. RESPIRATORY: Denies cough or dyspnea. GASTROINTESTINAL: abdominal pain, Denies nausea, vomiting, or diarrhea. GENITOURINARY: Denies dysuria or hematuria. Vaginal bleeding, now improved SKIN: Denies rash or itching. MUSCULOSKELETAL: Denies back pain, joint pain, or myalgia. NEUROLOGIC: Denies headache, numbness, dizziness, or weakness. PSYCHIATRIC: Denies anxiety or depression. [facility] Past Medical History Medical History Miscarriage Twin Vaginal bleeding during Surgical History Surgical History History of left salpingo-oophorectomy Previous section x2 Family History Family History Father Myocardial infarct Other CAD (coronary artery disease) Social History Social History Smoking status: Never smoker Alcohol intake: unknown Substance use: never Substance use type: marijuana Living arrangements: with family Gender identity (if verbalized by the patient): Female Spiritual care concerns: No Exam Narrative: GENERAL: Well-appearing, well-nourished, and in no acute distress. HEAD: Normocephalic, atraumatic. EYES: PERRLA and EOMI. ENT: Nares clear, no rhinorrhea or epistaxis. Mucous membranes moist. Oropharynx without tonsillar hypertrophy exudate or other lesions. NECK: Supple. No adenopathy or masses. No carotid bruits or JVD CHEST: Clear to auscultation. No respiratory distress. No wheezes rales or rhonchi HEART: Regular rate and rhythm. No murmur heard. Normal peripheral pulses. ABDOMEN: Soft, nontender, Rovsing's sign negative, nondistended, normal active bowel sounds. No CVA tenderness EXTREMITIES: Normal range of motion. No edema. SKIN: Warm, dry, no rash. NEURO: No focal deficits. Alert and oriented x3. PSYCH: Normal mood and affect. Course Course Emergency Course: 19:20 - Ultrasound negative for ectopic . Serum beta hCG negative. Patient's white count is normal with a unremarkable CMP. Waters score 2, I do not suspect the need for CT abdomen at this time. Will discharge. Provided patient with OB and primary care resources. Discussed return and emergent precautions including signs/symptoms of appendicitis and acute abdomen. The patient voiced understanding and is comfortable with the plan. All questions answered to her satisfaction. Vital Signs Vital signs: Vital Signs Temperature 98.3 F 07/06/22 14:09 Pulse Rate 96 07/06/22 14:09 Respiratory Rate 16 07/06/22 14:09 Blood Pressure 135/89 07/06/22 14:09 Pulse Oximetry 99 07/06/22 14:09 Oxygen Delivery Room Air 07/06/22 14:09 Temperature 98.3 F 07/06/22 14:09 Pulse Rate 92 07/06/22 19:34 Respiratory Rate 16 07/06/22 19:34 Blood Pressure 135/89 07/06/22 14:09 Pulse Oximetry 99
[2022-07-06 19:34] VITALS: PULSE 92; RESP 16; O2SAT 99
== END 2022-07-06 19:40 | disposition home or self-care (01) ==
LOC: ANHED 20:09
PROVIDERS: Emergency Medicine; Emergency Provider Preventive Medicine Aerospace Medicine
DX: R10.31 Right lower quadrant pain (principal); N83.201 Unspecified ovarian cyst, right side
CPT/HCPCS: 36415; 76830; 76856; 80053; 81001; 84702; 85025; 99284

== ENCOUNTER 2023-02-21 18:19 | Emergency (ER) | payer OTHER, SELFPAY ==
[2023-02-21 19:10] VITALS: BP 131/97; PULSE 83; RESP 16; TEMP 37.2; O2SAT 99
--- NOTE | 2023-02-21 19:33 | ED.FEMALEGU ---
HPI - Female Genitourinary General Chief complaint: Urogenital-Female Stated complaint: Urogenital Female Time Seen by Provider: 02/21/23 19:28 Source: patient and RN notes reviewed Mode of arrival: ambulatory Limitations: no limitations History of Present Illness HPI Narrative: Patient presents today with a 5 day history of urinary frequency and dysuria. Denies any additional symptoms to include hematuria, abdominal pain, fever, nausea or vomiting. She has been taking azo. Her last dose was this morning. Related Data Home Medications Medication Instructions Recorded Confirmed Iud 02/21/23 Allergies Allergy/AdvReac Type Severity Reaction Status Date / Time artichoke Allergy Severe Anaphylaxis Verified 02/21/23 18:34 bee venom protein (honey bee) Allergy Anaphylaxis Verified 02/21/23 19:30 [bees] Review of Systems Review of Systems: CONSTITUTIONAL: Denies body aches, fever, chills, or sweats. EYES: Denies visual changes, redness, or discharge. ENT: Denies rhinorrhea, congestion, sore throat, or otalgia. CARDIOVASCULAR: Denies chest pain, palpitations, or edema. RESPIRATORY: Denies cough or dyspnea. GASTROINTESTINAL: Denies abdominal pain, nausea, vomiting, or diarrhea. GENITOURINARY: + dysuria, frequency SKIN: Denies rash, itching, or wounds. MUSCULOSKELETAL: Denies back pain, joint pain, or myalgia. NEUROLOGIC: Denies headache, numbness, tingling, or weakness. PSYCH: Denies depression or anxiety. [facility] Past Medical History Medical History Miscarriage Twin Vaginal bleeding during Surgical History Surgical History History of left salpingo-oophorectomy Previous section x2 Family History Family History Father Myocardial infarct Other CAD (coronary artery disease) Social History Social History Smoking status: Never smoker Alcohol intake: unknown Substance use: never Substance use type: marijuana Living arrangements: with family Gender identity (if verbalized by the patient): Female Spiritual care concerns: No Comments At time of signature, I have reviewed and agree with nursing past medical, surgical, social and family history unless otherwise noted. Please see nursing chart for further information. There is no relevant family history pertinent to the presenting complaint Exam Narrative: GENERAL: Well-appearing, well-nourished, and in no acute distress. HEAD: Normocephalic, atraumatic. EYES: EOMI. No redness or drainage. Conjunctivae normal. ENT: Mucous membranes pink and moist. NECK: Normal AROM. CHEST: No respiratory distress. Clear to auscultation. HEART: Regular rate and rhythm. No murmur appreciated. ABDOMEN: Soft, nontender, nondistended, normal active bowel sounds.-CVAT EXTREMITIES: Normal range of motion. No edema. SKIN: Warm, dry, no rash. Capillary refill normal. Normal skin turgor. NEURO: No focal deficits. Alert and oriented x3. Gait steady. PSYCH: Normal affect. No signs of depression or anxiety. Course Course Level of Care: Express Care Visit Vital Signs Vital signs: Vital Signs Temperature 99.0 F 02/21/23 19:10 Pulse Rate 83 02/21/23 19:10 Respiratory Rate 16 02/21/23 19:10 Blood Pressure 131/97 H 02/21/23 19:10 Pulse Oximetry 99 02/21/23 19:10 Oxygen Delivery Room Air 02/21/23 19:10 Temperature 99.0 F 02/21/23 19:10 Pulse Rate 83 02/21/23 19:10 Respiratory Rate 16 02/21/23 19:10 Blood Pressure 131/97 H 02/21/23 19:10 Pulse Oximetry 99 02/21/23 19:10 Oxygen Delivery Room Air 02/21/23 19:10 Reviewed. Pt has been instructed to follow up with her PCP regarding her elevated blood pressure today. MDM - Female Genit
== END 2023-02-21 19:42 | disposition home or self-care (01) ==
PROVIDERS: Emergency Provider Nurse Practitioner
DX: R30.0 Dysuria (principal)
CPT/HCPCS: 87086; 87088; 99213; G0463